=== PATIENT | female | born 1955 ===

== ENCOUNTER 2016-10-06 17:31 | Emergency (ER) | payer MEDICAID ==
[2016-10-06 17:51] VITALS: BP 126/88; PULSE 66; RESP 18; TEMP 97.1; O2SAT 99
[2016-10-06] MEDS ORDERED: Sodium Chloride 0.9% 1,000 ML IV STA (18:03)
--- NOTE | 2016-10-06 18:06 | ED PDOC ---
HPI: Abdomen Time Seen by Provider: 10/06/16 18:04 Chief Complaint (Nursing): Abdominal Pain Chief Complaint (Provider): abdominal pain History Per: Patient (60 y/o female h/o IDDM here with bruising and pain noted lower abdomen during shower. Denies any vomiting/dairrhea. No fevers/chills. No fall noted. Denies use of insulin in this region.) Past Medical History Reviewed: Historical Data, Nursing Documentation, Vital Signs Vital Signs: Last Vital Signs Temp 97.1 F L 10/06/16 17:47 Pulse 66 10/06/16 17:47 Resp 18 10/06/16 17:47 BP 126/88 10/06/16 17:47 Pulse Ox 99 10/06/16 18:06 - Medical History PMH: Arthritis, CAD, Diabetes, HTN, Hypercholesterolemia Denies: Fractures, HIV, Chronic Kidney Disease - Surgical History Surgical History: CABG - Family History Family History: States: Hypertension - Home Medications Home Medications: Ambulatory Orders Medication Instructions Recorded Atorvastatin [Lipitor] 80 mg PO DAILY 01/13/16 Citalopram Hydrobromide 40 mg PO DAILY 01/13/16 [Citalopram HBr] Clopidogrel [Plavix] 75 mg PO DAILY 01/13/16 Fenofibrate,Micronized [Lofibra] 134 mg PO DAILY 01/13/16 Ibuprofen [Motrin Tab] 600 mg PO Q8H PRN 01/13/16 Losartan/Hydrochlorothiazide 1 tab PO DAILY 01/13/16 [Hyzaar 100-25 Tablet] Nitroglycerin [Nitrostat] 0.4 mg SL Q5MIN PRN 01/13/16 Omeprazole 20 mg PO DAILY 01/13/16 Sitagliptin Phos/Metformin HCl 1 tab PO BID 01/13/16 [Janumet 50-500 mg Tablet] Ranolazine [Ranexa] 500 mg PO Q12H 04/18/16 Zolpidem [Ambien] 10 mg PO HS 04/18/16 Isosorbide Mononitrate [Imdur] 60 mg PO DAILY 06/05/16 amLODIPine [Norvasc] 5 mg PO DAILY 06/05/16 Insulin Detemir [Levemir] 10 units SC HS #1 vial 06/06/16 - Allergies Allergies/Adverse Reactions: Allergies Allergy/AdvReac Type Severity Reaction Status Date / Time No Known Allergies Allergy Verified 05/16/16 15:49 Review of Systems ROS Statement: Except As Marked, All Systems Reviewed And Found Negative Physical Exam - Reviewed Nursing Documentation Reviewed: Yes Vital Signs Reviewed: Yes - Physical Exam Appears: Positive for: Well, Non-toxic, No Acute Distress Head Exam: Positive for: ATRAUMATIC, NORMAL INSPECTION, NORMOCEPHALIC Skin: Positive for: Normal Color, Warm, DRY Eye Exam: Positive for: EOMI, Normal appearance, PERRL ENT: Positive for: Normal ENT Inspection Neck: Positive for: Normal, Painless ROM Cardiovascular/Chest: Positive for: Regular Rate, Rhythm Respiratory: Positive for: CNT, Normal Breath Sounds Gastrointestinal/Abdominal: Positive for: Normal Exam, Bowel Sounds, Soft Back: Positive for: Normal Inspection Extremity: Positive for: Normal ROM Neurologic/Psych: Positive for: Alert, Oriented - Laboratory Results Result Diagrams: 10/06/16 18:31 10/06/16 18:31 - ECG O2 Sat by Pulse Oximetry: 99 Disposition - Clinical Impression Clinical Impression: Abdominal pain - Patient ED Disposition Is Patient to be Admitted: No - Disposition Disposition: Transfer of Care Disposition Time: 20:00 Condition: FAIR Patient Signed Over To: Zakia Garduno Handoff Comments: PENDING CT ABD/PELVIS
[2016-10-06 18:46] LABS: BASO # 0.1 K/uL (0.0-0.2); BASO % 0.9 % (0.0-2.0); EOS # 0.3 K/uL (0.0-0.7); EOS % 3.5 % (0.0-4.0); LYMPH # 3.1 K/uL (1.0-4.3); LYMPH % 36.3 % (20.0-40.0); MEAN CELL VOLUME 82.9 fl (81.0-99.0); MEAN CORPUSCULAR HEMOGLOBIN 27.1 pg (27.0-31.0); MEAN CORPUSCULAR HGB CONC 32.6 g/dL (33.0-37.0); MEAN PLATELET VOLUME 8.2 fl (7.2-11.7); MONO # 0.6 K/uL (0.0-0.8); MONO % 7.4 % (0.0-10.0); NEUT # 4.5 K/uL (1.8-7.0); NEUT % 51.9 % (50.0-75.0); RBC 4.44 Mil/uL (3.80-5.20); RED CELL DISTRIBUTION WIDTH 15.7 % (11.5-14.5); WHITE BLOOD COUNT 8.6 K/uL (4.8-10.8)
[2016-10-06 18:54] LABS: ALB/GLOB RATIO 1.4 (1.0-2.1); ALBUMIN 4.3 g/dL (3.5-5.0); ALT/SGPT 43 U/L (9-52); AST/SGOT 33 U/L (14-36); BLOOD UREA NITROGEN 19 mg/dl (7-17); CALCIUM 9.5 mg/dL (8.4-10.2); GFR AFRICAN-AMERICAN > 60; GFR NON-AFRICAN AMERICAN > 60; LIPASE 289 U/L (23-300)
[2016-10-06 18:59] LABS: PARTIAL THROMBOPLASTIN TIME 30.5 Seconds (25.6-37.1); PROTHROMBIN TIME 11.3 Seconds (9.8-13.1)
[2016-10-06] MEDS ORDERED: Iohexol 300 100 ML IJ ONE (19:15)
[2016-10-06] MEDS ORDERED: Sodium Chloride 0.9% 50 ML IV ONE (19:15)
--- NOTE | 2016-10-06 20:14 | CT ---
EXAM: CT Abdomen and Pelvis With Intravenous Contrast CLINICAL HISTORY: 60 years old, female; Pain; Abdominal pain; Periumbilical; Additional info: Ecchymosis and pain below umbilicus. R/O hematoma TECHNIQUE: Axial computed tomography images of the abdomen and pelvis with intravenous contrast. This CT exam was performed using one or more of the following dose reduction techniques: automated exposure control, adjustment of the mA and/or kV according to patient size, and/or use of iterative reconstruction technique. Coronal and sagittal reformatted images were created and reviewed. CONTRAST: 90 mL of [id number] administered intravenously. EXAM DATE/TIME: 10/06/2016 6:03 PM COMPARISON: Prior CT abdomen and pelvis of 08/15/2011 FINDINGS: LIMITATIONS: Streak artifact from the patient's arms. LOWER THORAX: No infiltrate seen in the lung bases. ABDOMEN: LIVER: Fatty infiltration of the liver. No focal liver lesions seen. GALLBLADDER AND BILE DUCTS: No CT evidence of acute cholecystitis. No evidence of significant biliary ductal dilatation. PANCREAS: No CT evidence of acute pancreatitis. SPLEEN: No acute abnormality of the spleen identified. ADRENALS: No acute abnormality of the adrenal glands identified. KIDNEYS AND URETERS: Mild bilateral renal scarring. No acute abnormality of the kidneys identified. STOMACH AND BOWEL: No acute abnormality of the stomach, small bowel or colon identified. No evidence of bowel obstruction. APPENDIX: Appendix is seen, and is within normal limits in appearance. PELVIS: BLADDER: No acute abnormality of the bladder identified. REPRODUCTIVE:No acute abnormality of the reproductive organs is seen. No acute abnormality of the uterus identified. No evidence of large adnexal masses. ABDOMEN and PELVIS: INTRAPERITONEAL SPACE: No evidence of free intraperitoneal air or fluid. BONES/JOINTS: Mild scoliosis and marked, multilevel degenerative changes of the spine. SOFT TISSUES: Mild subcutaneous fat stranding in the upper, anterior pelvic wall soft tissues, inferior to the umbilicus, which could represent mild subcutaneous contusion or cellulitis. There is no evidence of a large soft tissue hematoma or fluid collection. Stable appearance of multiple small collateral vessels in the anterior pelvic wall soft tissues, in the suprapubic region, suggestive of some type of chronic venous obstruction. No evidence of abdominal wall hernia containing bowel. VASCULATURE: No evidence of abdominal aortic aneurysm or dissection. LYMPH NODES: No evidence of diffuse lymphadenopathy. IMPRESSION: - No evidence of significant acute process. - Findings in the infraumbilical soft tissues which could be due to mild subcutaneous contusion or cellulitis. No evidence of soft tissue hematoma. - Otherwise, no evidence of significant acute process. - See above for remaining findings.
--- NOTE | 2016-10-06 21:12 | ED PDOC ---
- Laboratory Results Result Diagrams: 10/06/16 18:31 10/06/16 18:31 - ECG O2 Sat by Pulse Oximetry: 99 Medical Decision Making Medical Decision Making: Case endorsed to staff writer from JUAN Corbett at 20:00 pending diagnostic review and re-eval HPI: Abdomen Time Seen by Provider: 10/06/16 18:04 Chief Complaint (Nursing): Abdominal Pain Chief Complaint (Provider): abdominal pain History Per: Patient (60 y/o female h/o IDDM here with bruising and pain noted lower abdomen during shower. Denies any vomiting/dairrhea. No fevers/chills. No fall noted. Denies use of insulin in this region.) CBC and COMP resulted WNL CT IMPRESSION: - No evidence of significant acute process. - Findings in the infraumbilical soft tissues which could be due to mild subcutaneous contusion or cellulitis. No evidence of soft tissue hematoma. - Otherwise, no evidence of significant acute process. - See above for remaining findings Upon my eval, Pt without any complaints. reports feeling better. Abdomen soft non tender and non distended Disposition - Clinical Impression Clinical Impression: Abdominal pain - POA Present On Arrival: None - Disposition Disposition: Routine/Home Disposition Time: 21:18 Condition: FAIR
== END 2016-10-06 21:34 | disposition home or self-care (01) ==
LOC: H.ER 17:31
DX: R10.9 Unspecified abdominal pain (principal); E11.9 Type 2 diabetes mellitus without complications; I10 Essential (primary) hypertension

== ENCOUNTER 2016-11-09 14:10 | Emergency (ER) | payer MEDICAID ==
[2016-11-09] MEDS ORDERED: Sodium Chloride 0.9% 1,000 ML IV STA (14:28)
--- NOTE | 2016-11-09 14:38 | ED PDOC ---
HPI: Abdomen Time Seen by Provider: 11/09/16 14:23 Chief Complaint (Nursing): Abdominal Pain Chief Complaint (Provider): Abodminal Pain History Per: Patient History/Exam Limitations: no limitations Onset/Duration Of Symptoms: Hrs (prior to arrival ) Additional Complaint(s): Anne Matta is a 61 year old female with a past medical history of hypertension and diabetes and a past surgical history of open heart surgery in 2004 presenting to the ED for an evaluation of a sudden onset of right sided abdominal pain radiating to her back associated with nausea beginning at 7 AM this morning. The patient reports no prior history of similar pain. She denies fever and diarrhea. PMD: Nba Garzon MD Past Medical History Reviewed: Historical Data, Nursing Documentation, Vital Signs Vital Signs: Last Vital Signs Temp 97.9 F 11/09/16 17:12 Pulse 57 L 11/09/16 17:12 Resp 16 11/09/16 17:12 BP 138/86 11/09/16 17:12 Pulse Ox 99 11/12/16 10:28 - Medical History PMH: Arthritis, CAD, Diabetes, HTN, Hypercholesterolemia Denies: Fractures, HIV, Chronic Kidney Disease - Surgical History Surgical History: CABG - Family History Family History: States: Hypertension - Living Arrangements Living Arrangements: With Family - Home Medications Home Medications: Ambulatory Orders Medication Instructions Recorded Atorvastatin [Lipitor] 80 mg PO DAILY 01/13/16 Citalopram Hydrobromide 40 mg PO DAILY 01/13/16 [Citalopram HBr] Clopidogrel [Plavix] 75 mg PO DAILY 01/13/16 Fenofibrate,Micronized [Lofibra] 134 mg PO DAILY 01/13/16 Ibuprofen [Motrin Tab] 600 mg PO Q8H PRN 01/13/16 Losartan/Hydrochlorothiazide 1 tab PO DAILY 01/13/16 [Hyzaar 100-25 Tablet] Nitroglycerin [Nitrostat] 0.4 mg SL Q5MIN PRN 01/13/16 Omeprazole 20 mg PO DAILY 01/13/16 Sitagliptin Phos/Metformin HCl 1 tab PO BID 01/13/16 [Janumet 50-500 mg Tablet] Ranolazine [Ranexa] 500 mg PO Q12H 04/18/16 Zolpidem [Ambien] 10 mg PO HS 04/18/16 Isosorbide Mononitrate [Imdur] 60 mg PO DAILY 06/05/16 amLODIPine [Norvasc] 5 mg PO DAILY 06/05/16 Insulin Detemir [Levemir] 10 units SC HS #1 vial 06/06/16 Polyethylene Glycol 3350 [Miralax] 1 tbs PO DAILY PRN #1 bottle 11/09/16 - Allergies Allergies/Adverse Reactions: Allergies Allergy/AdvReac Type Severity Reaction Status Date / Time No Known Allergies Allergy Verified 05/16/16 15:49 Review of Systems ROS Statement: Except As Marked, All Systems Reviewed And Found Negative Constitutional: Negative for: Fever Gastrointestinal: Positive for: Nausea, Abdominal Pain. Negative for: Diarrhea Physical Exam - Reviewed Nursing Documentation Reviewed: Yes Vital Signs Reviewed: Yes - Physical Exam Appears: Positive for: Well, Non-toxic, No Acute Distress Head Exam: Positive for: ATRAUMATIC, NORMAL INSPECTION, NORMOCEPHALIC Skin: Positive for: Normal Color, Warm, DRY Eye Exam: Positive for: EOMI, Normal appearance, PERRL ENT: Positive for: Normal ENT Inspection Neck: Positive for: Normal, Painless ROM Cardiovascular/Chest: Positive for: Regular Rate, Rhythm Respiratory: Positive for: CNT, Normal Breath Sounds Gastrointestinal/Abdominal: Positive for: Normal Exam, Bowel Sounds, Soft, Tenderness (right sided lower abdomen tenderness ) Back: Positive for: Normal Inspection, R CVA Tenderness Extremity: Positive for: Normal ROM Neurologic/Psych: Positive for: Alert, Oriented - Laboratory Results Result Diagrams: 11/09/16 14:50 11/09/16 14:50 - ECG O2 Sat by Pulse Oximetry: 99 (RA) Pulse Ox Interpretation: Normal Medical Decision Making Medical Decision Makin:23 Impression: Abdominal pain Plan: * Initiate pain medicine * Obtain blood work * US Abdomen to rule out renal colic vs. cholelithiasis vs. appendicitis * Re-evaluation Scribe Attestation: Documented by Earlene Casanova, acting as a scribe for Wale Andre DO. Provider Scribe Attestation: All medical record entries made by the Scribe were at my direction and personally dictated by me. I have reviewed the chart and agree that the record accurately reflects my personal performance of the history, physical exam, medical decision making, and the department course for this patient. I have also personally directed, reviewed, and agree with the discharge instructions and disposition. Disposition - Clinical Impression Clinical Impression: Abdominal pain in female, Constipation Counseled Patient/Family Regarding: Need For Followup - Disposition Referrals: Nba Garzon MD [Family Provider] - Disposition: Transfer of Care Disposition Time: 15:00 Condition: STABLE Prescriptions: Polyethylene Glycol 3350 [Miralax] 1 tbs PO DAILY PRN #1 bottle PRN Reason: Constipation Instructions: Constipation (ED), Abdominal Pain (ED) Forms: [facility] (Chinese) Print Language: AMHARIC Patient Signed Over To: Nicole Browning Handoff Comments: pending US abd and blood work
[2016-11-09 15:00] LABS: BASO # 0.1 K/uL (0.0-0.2); BASO % 0.8 % (0.0-2.0); EOS # 0.4 K/uL (0.0-0.7); EOS % 4.6 % (0.0-4.0); HEMOGLOBIN 12.2 g/dL (12.0-16.0); LYMPH # 3.1 K/uL (1.0-4.3); LYMPH % 36.8 % (20.0-40.0); MEAN CELL VOLUME 82.6 fl (81.0-99.0); MEAN CORPUSCULAR HEMOGLOBIN 26.5 pg (27.0-31.0); MEAN CORPUSCULAR HGB CONC 32.1 g/dL (33.0-37.0); MEAN PLATELET VOLUME 7.8 fl (7.2-11.7); MONO # 0.9 K/uL (0.0-0.8); MONO % 10.2 % (0.0-10.0); NEUT % 47.6 % (50.0-75.0); NRBC % 0.1 % (0.0-0.0); RBC 4.62 Mil/uL (3.80-5.20); RED CELL DISTRIBUTION WIDTH 15.6 % (11.5-14.5); WHITE BLOOD COUNT 8.4 K/uL (4.8-10.8)
[2016-11-09 15:08] LABS: ALB/GLOB RATIO 1.3 (1.0-2.1); ALBUMIN 4.3 g/dL (3.5-5.0); ALT/SGPT 39 U/L (9-52); AST/SGOT 42 U/L (14-36); BLOOD UREA NITROGEN 17 mg/dl (7-17); CALCIUM 9.3 mg/dL (8.4-10.2); GFR AFRICAN-AMERICAN > 60; GFR NON-AFRICAN AMERICAN > 60; LIPASE 192 U/L (23-300)
[2016-11-09 15:49] LABS: SQUAMOUS EPITHIAL < 1 /hpf (0-5); URINE BILIRUBIN NEGATIVE (NEGATIVE); URINE BLOOD NEGATIVE (NEGATIVE); URINE CLARITY CLEAR (Clear); URINE COLOR YELLOW (YELLOW); URINE GLUCOSE (UA) NEG (Normal); URINE LEUKOCYTE ESTERASE NEG Leu/uL (Negative); URINE NITRATE NEGATIVE (NEGATIVE); URINE PROTEIN NEGATIVE (NEGATIVE); URINE UROBILINOGEN 0.2-1.0 mg/dL (0.2-1.0)
--- NOTE | 2016-11-09 16:38 | ED PDOC ---
- Laboratory Results Result Diagrams: 11/09/16 14:50 11/09/16 14:50 - ECG O2 Sat by Pulse Oximetry: 99 (RA) - CT Scan/US CT abd/pelvis Other Rad Studies (CT/US): Radiology Report Reviewed (No significant or acute findings to account for/ related to the clinical presentation. No significant interval change compared to the prior examination(s).) Disposition - Clinical Impression Clinical Impression: Abdominal pain in female, Constipation - POA Present On Arrival: None - Disposition Referrals: Nba Garzon MD [Family Provider] - Disposition: Routine/Home Disposition Time: 17:39 Condition: STABLE Prescriptions: Polyethylene Glycol 3350 [Miralax] 1 tbs PO DAILY PRN #1 bottle PRN Reason: Constipation Instructions: Constipation (ED), Abdominal Pain (ED) Forms: [facility] (Malagasy) Print Language: SOUTH KOREAN Addendum Addendum: 11/09/16 15:00 Pt signed out by Dr. Andre pending CT.
--- NOTE | 2016-11-09 17:02 | US ---
HISTORY: Right flank and abdominal pain. COMPARISON: 06/05/2016 abdominal ultrasound TECHNIQUE: Sonographic evaluation of the abdomen. FINDINGS: LIVER: Measures 15.6 cm. Patent portal vein. Portal venous flow: Hepatopetal. Unremarkeable echogenicity of the liver parenchyma. No mass. No intrahepatic bile duct dilatation. GALLBLADDER: Unremarkable. No gallstones. COMMON BILE DUCT: Measures 4.2 mm. No stones. No dilatation. PANCREAS: Unremarkable as visualized. No mass. No ductal dilatation. RIGHT KIDNEY: Measures 4 x 10.8cm. Normal echogenicity. No calculus, mass, or hydronephrosis. LEFT KIDNEY: Measures 6.7 x 10.9cm. Normal echogenicity. No calculus, mass, or hydronephrosis. SPLEEN: Normal in size and contour. No mass. AORTA: No aneurysmal dilatation. IVC: Unremarkable. OTHER FINDINGS: None. IMPRESSION: No significant or acute findings to account for/ related to the clinical presentation. No significant interval change compared to the prior examination(s).
--- NOTE | 2016-11-09 17:08 | CT ---
PROCEDURE: CT Abdomen and Pelvis without intravenous contrast HISTORY: Flank pain COMPARISON: 10/06/2016 CT abdomen and pelvis. November 09, 2016. Abdominal ultrasound reported separately TECHNIQUE: Unenhanced study. Neither oral nor intravenous contrast administered. Radiation dose: Total exam DLP = 1082.80 mGy-cm. This CT exam was performed using one or more of the following dose reduction techniques: Automated exposure control, adjustment of the mA and/or kV according to patient size, and/or use of iterative reconstruction technique. FINDINGS: LOWER THORAX: Incompletely visualize cardiomegaly. No pericardial abnormalities. No pulmonary findings of consequence. LIVER: Hepatic steatosis. No focal masses. No intrahepatic bile duct dilatation or perihepatic ascites. GALLBLADDER AND BILE DUCTS: Unremarkable. PANCREAS: Unremarkable. No gross lesion or ductal dilatation. SPLEEN: Unremarkable. ADRENALS: Unremarkable. No mass. KIDNEYS AND URETERS: Unremarkable. No hydronephrosis. No solid mass. VASCULATURE: Unremarkable. No aortic aneurysm. BOWEL: Constipation without fecal impaction or obstruction. APPENDIX: Unremarkable. Normal appendix. PERITONEUM: Unremarkable. No free fluid. No free air. LYMPH NODES: Unremarkable. No enlarged lymph nodes. BLADDER: Unremarkable. REPRODUCTIVE: Unremarkable. BONES: No acute fracture. Multilevel degenerative change stable compared to the prior CT scan. OTHER FINDINGS: None. IMPRESSION: No significant or acute findings to account for/ related to the clinical presentation. No significant interval change compared to the prior examination(s).
[2016-11-09 17:13] VITALS: BP 138/86; PULSE 57; RESP 16; TEMP 97.9
[2016-11-12 10:28] VITALS: O2SAT 99
== END 2016-11-09 17:49 | disposition home or self-care (01) ==
LOC: H.ER 14:10
DX: K59.00 Constipation, unspecified (principal); E11.9 Type 2 diabetes mellitus without complications; I10 Essential (primary) hypertension

== ENCOUNTER 2017-02-23 14:51 | Emergency (ER) | payer MEDICAID ==
[2017-02-23 15:08] VITALS: BP 148/75; PULSE 73; RESP 20; TEMP 99.6; O2SAT 98
[2017-02-23] MEDS ORDERED: Alum-Mag Hydrox-Simethicone Susp (30 mL) PO STA (15:28)
--- NOTE | 2017-02-23 15:39 | ED PDOC ---
HPI: Abdomen Time Seen by Provider: 02/23/17 15:13 Chief Complaint (Nursing): Abdominal Pain Chief Complaint (Provider): Epigastric pain History Per: Patient History/Exam Limitations: no limitations Onset/Duration Of Symptoms: Days (2) Additional Complaint(s): Patient is a 61 y/o female with a past medical history of CAD and CABG presenting to the emergency department for epigastric pain ongoing for two days with associated nausea. Describes the pain as a burning sensation that is non- radiating and is worse when eating. Notes taking Bentyl and pantoprazole without any significant relief. Denies vomiting, black or bloody stool, urinary symptoms, fever, chills, diarrhea, constipation, or other complaints. Patient was seen in the ED for the same pain in the past. Reports being evaluated by the chop saw operator two years ago and had an endoscopic procedure performed on her. Denies any follow up since then. PCP: Dr. Nba Garzon ([facility]). Past Medical History Reviewed: Historical Data, Nursing Documentation, Vital Signs Vital Signs: Last Vital Signs Temp 99.6 F 02/23/17 15:05 Pulse 73 02/23/17 15:05 Resp 20 02/23/17 15:05 BP 148/75 02/23/17 15:05 Pulse Ox 98 02/23/17 15:46 - Medical History PMH: Arthritis, CAD, Diabetes, HTN, Hypercholesterolemia Denies: Fractures, HIV, Chronic Kidney Disease - Surgical History Surgical History: CABG - Family History Family History: States: Diabetes, Hypertension - Social History Current smoker - smoking cessation education provided: No Ex-Smoker (has not smoked in the last 12 months): No Alcohol: None Drugs: Denies - Home Medications Home Medications: Ambulatory Orders Medication Instructions Recorded Atorvastatin [Lipitor] 80 mg PO DAILY 01/13/16 Citalopram Hydrobromide 40 mg PO DAILY 01/13/16 [Citalopram HBr] Clopidogrel [Plavix] 75 mg PO DAILY 01/13/16 Fenofibrate,Micronized [Lofibra] 134 mg PO DAILY 01/13/16 Ibuprofen [Motrin Tab] 600 mg PO Q8H PRN 01/13/16 Losartan/Hydrochlorothiazide 1 tab PO DAILY 01/13/16 [Hyzaar 100-25 Tablet] Nitroglycerin [Nitrostat] 0.4 mg SL Q5MIN PRN 01/13/16 Omeprazole 20 mg PO DAILY 01/13/16 Sitagliptin Phos/Metformin HCl 1 tab PO BID 01/13/16 [Janumet 50-500 mg Tablet] Ranolazine [Ranexa] 500 mg PO Q12H 04/18/16 Zolpidem [Ambien] 10 mg PO HS 04/18/16 Isosorbide Mononitrate [Imdur] 60 mg PO DAILY 06/05/16 amLODIPine [Norvasc] 5 mg PO DAILY 06/05/16 Insulin Detemir [Levemir] 10 units SC HS #1 vial 06/06/16 Polyethylene Glycol 3350 [Miralax] 1 tbs PO DAILY PRN #1 bottle 11/09/16 Sucralfate [Carafate] 1 gm PO QID PRN #20 dose 02/23/17 - Allergies Allergies/Adverse Reactions: Allergies Allergy/AdvReac Type Severity Reaction Status Date / Time No Known Allergies Allergy Verified 05/16/16 15:49 Review of Systems ROS Statement: Except As Marked, All Systems Reviewed And Found Negative Constitutional: Negative for: Fever, Chills Gastrointestinal: Positive for: Nausea, Abdominal Pain (epigastric). Negative for: Vomiting, Diarrhea, Constipation, Melena, Hematochezia Genitourinary Female: Negative for: Dysuria, Frequency, Hematuria Physical Exam - Reviewed Nursing Documentation Reviewed: Yes Vital Signs Reviewed: Yes - Laboratory Results Result Diagrams: 02/23/17 15:49 02/23/17 15:49 - ECG ECG: Positive for: Interpreted By Ok ECG Rhythm: Positive for: Normal QRS, Sinus Rhythm, Nonspecific Changes O2 Sat by Pulse Oximetry: 98 (RA) Pulse Ox Interpretation: Normal Medical Decision Making Medical Decision Makin:28 Initial Impression: Recurrent abdominal pain Initial Plan: EKG Labs: CMP, Lipase, CBC ED Urine Dipstick Aluminum Hydroxide 30 mL PO Pepcid 40 mg PO Lidocaine 10 mL PO Zofran 4 mg IVP Sucralfate 1 gm PO Reevaluation Reviewed previous charts. Patient had a CT scan A/P twice this year and two abdominal ultrasounds which were unremarkable. No explanation of symptoms were provided. No clinically significant lab abnormalities. Scribe Attestation: Documented by Sally Gomez acting as a scribe for Zakia Parra MD. Provider Scribe Attestation: All medical record entries made by the Scribe were at my direction and personally dictated by me. I have reviewed the chart and agree that the record accurately reflects my personal performance of the history, physical exam, medical decision making, and the department course for this patient. I have also personally directed, reviewed, and agree with the discharge instructions and disposition. Disposition - Clinical Impression Clinical Impression: Abdominal pain Counseled Patient/Family Regarding: Studies Performed, Diagnosis, Need For Followup, Rx Given - Disposition Referrals: Wale Jackson MD, PhD [Staff Provider] - 02/26/17 ([facility] A LA OFICINA DE GASTROENTEROLOGO POR LA MANANA A HACER JUAN C MAURILIO EN 2-3 STANLEY POR MAS EVALUACIONES ) Disposition: Routine/Home Disposition Time: 17:22 Condition: GOOD Prescriptions: Sucralfate [Carafate] 1 gm PO QID PRN #20 dose PRN Reason: Abdominal pain Instructions: Abdominal Pain (ED) Print Language: TRISTANIAN
[2017-02-23] MEDS ORDERED: Sucralfate 1 gm/10 ml Oral Susp UD ONE (15:52)
[2017-02-23] MEDS ORDERED: Alum-Mag Hydrox-Simethicone Susp (30 mL) ONE (15:53)
[2017-02-23 15:54] LABS: BASO # 0.1 K/uL (0.0-0.2); BASO % 0.7 % (0.0-2.0); EOS # 0.2 K/uL (0.0-0.7); EOS % 2.7 % (0.0-4.0); HEMATOCRIT 36.5 % (34.0-47.0); LYMPH # 2.1 K/uL (1.0-4.3); LYMPH % 24.2 % (20.0-40.0); MEAN CORPUSCULAR HEMOGLOBIN 26.9 pg (27.0-31.0); MEAN CORPUSCULAR HGB CONC 33.2 g/dL (33.0-37.0); MEAN PLATELET VOLUME 7.8 fl (7.2-11.7); MONO # 0.8 K/uL (0.0-0.8); MONO % 9.2 % (0.0-10.0); NEUT # 5.4 K/uL (1.8-7.0); NEUT % 63.2 % (50.0-75.0); NRBC % 0.1 % (0.0-0.0); RED CELL DISTRIBUTION WIDTH 15.6 % (11.5-14.5); WHITE BLOOD COUNT 8.5 K/uL (4.8-10.8)
[2017-02-23 17:01] LABS: ALB/GLOB RATIO 1.2 (1.0-2.1); ALKALINE PHOSPHATASE 51 U/L (38-126); ALT/SGPT 37 U/L (9-52); AST/SGOT 26 U/L (14-36); BILIRUBIN,TOTAL 0.3 mg/dl (0.2-1.3); BLOOD UREA NITROGEN 13 mg/dl (7-17); CALCIUM 8.9 mg/dL (8.4-10.2); CARBON DIOXIDE 30 mmol/L (22-30); CHLORIDE 105 mmol/L (98-107); GFR AFRICAN-AMERICAN > 60; GLUCOSE,RANDOM 150 mg/dL (65-105); LIPASE 174 U/L (23-300); POTASSIUM 4.4 MMOL/L (3.6-5.0); SODIUM 143 mmol/l (132-148); TOTAL PROTEIN 7.6 G/DL (6.3-8.2)
--- NOTE | 2017-02-24 12:49 | CARD ---
APPROVED REPORT EKG Measurement Heart [id number] <Conclusion> Normal sinus rhythm Nonspecific T wave abnormality Abnormal ECG
== END 2017-02-23 17:45 | disposition home or self-care (01) ==
LOC: H.ER 14:51
DX: R10.13 Epigastric pain (principal); E11.9 Type 2 diabetes mellitus without complications; E78.00 Pure hypercholesterolemia, unspecified; I10 Essential (primary) hypertension; I25.10 Atherosclerotic heart disease of native coronary artery without angina pectoris; Z79.4 Long term (current) use of insulin; Z95.1 Presence of aortocoronary bypass graft
CPT/HCPCS: 80053; 82948; 83690; 85025; 93005; 96374; 99283; J2405

== ENCOUNTER 2017-08-15 10:30 | Observation (INO) | payer MEDICAID ==
[2017-08-15 10:41] VITALS: BMI 33.6
--- NOTE | 2017-08-15 11:12 | ED PDOC ---
Hyperglycemia/Hypoglycemia Time Seen by Provider: 08/15/17 10:43 Chief Complaint (Nursing): High Blood Sugar Chief Complaint (Provider): High Blood Sugar History Per: Patient History/Exam Limitations: no limitations Onset/Duration Of Symptoms: Other (prior to arrival) Current Symptoms Are (Timing): Still Present : The patient does not have any of the infectious symptoms listed except for those marked. Additional Complaint(s): 61 y/o female with a pmhx of HTN, diabetes, hypercholesterolemia, and depression , who presents to the ED for evaluation of high blood sugar prior to arrival. Patient states she woke up feeling dizzy. She states she afterwards checked her blood sugar and it was over 520. She reports her dizziness is constant whether sitting or standing, and some blurry vision. Patient is also reporting weeks of urinary incontinence, but no stool incontinence. She also confirms intermittent chest pain onset this morning, nausea, and generalized weakness. Denies headache , shortness of breath, cough, vomiting, diarrhea, numbness, and tingling. PMD: Dr. Garzon NIHSS Stroke Scale - Date/Time Evaluation Performed Date Performed: 08/15/17 Time Performed: 10:45 When Was NIHSS Performed: Baseline - How Severe is the Stroke Level of Consciousness: 0=Alert LOC to Questions: 0=Both comments correct LOC to commands: 0=Obeys both correctly Best Gaze: 0=Normal Visual: 0=No visual loss Facial: 0=Normal Motor Arm - Left: 0=No drift Motor Arm - Right: 0=No drift Motor Leg - Left: 0=No drift Motor Leg - Right: 0=No drift Limb Ataxia: 0=Absent Sensory: 0=Normal Best Language: 0=No aphasia Dysarthia: 0=Normal articulation Extinction & Inattention (Neglect): 0=Normal, no object Score: 0 rTPA Inclusion/Exclusion - Refusal of Treatment Patient Refused Treatment: No - Inclusion Criteria for Altepase Patient is 18 years or Older: Yes The Clinical Diagnosis of Ischemic Stroke That is Causing a Potentially Disabling Neurological Deficit: No Time of Onset is Well Established to be Less Than 270 Minute Before Treatment Would Begin: No Risk/Benefit Discussed With Patient/Family Member Present: No Past Medical History Reviewed: Nursing Documentation, Vital Signs Vital Signs: Last Vital Signs Temp 98.1 F 08/15/17 10:41 Pulse 64 08/15/17 10:41 Resp 20 08/15/17 10:41 BP 168/88 H 08/15/17 10:41 Pulse Ox 97 08/15/17 10:41 - Medical History PMH: Arthritis, CAD, Diabetes, HTN, Hypercholesterolemia Denies: Fractures, HIV, Chronic Kidney Disease - Surgical History Surgical History: CABG - Family History Family History: States: Diabetes, Hypertension - Home Medications Home Medications: Ambulatory Orders Medication Instructions Recorded Atorvastatin [Lipitor] 80 mg PO DAILY 01/13/16 Citalopram Hydrobromide 40 mg PO DAILY 01/13/16 [Citalopram HBr] Clopidogrel [Plavix] 75 mg PO DAILY 01/13/16 Fenofibrate,Micronized [Lofibra] 134 mg PO DAILY 01/13/16 Ibuprofen [Motrin Tab] 600 mg PO Q8H PRN 01/13/16 Losartan/Hydrochlorothiazide 1 tab PO DAILY 01/13/16 [Hyzaar 100-25 Tablet] Nitroglycerin [Nitrostat] 0.4 mg SL Q5MIN PRN 01/13/16 Omeprazole 20 mg PO DAILY 01/13/16 Sitagliptin Phos/Metformin HCl 1 tab PO BID 01/13/16 [Janumet 50-500 mg Tablet] Ranolazine [Ranexa] 500 mg PO Q12H 04/18/16 Zolpidem [Ambien] 10 mg PO HS 04/18/16 Isosorbide Mononitrate [Imdur] 60 mg PO DAILY 06/05/16 amLODIPine [Norvasc] 5 mg PO DAILY 06/05/16 Insulin Detemir [Levemir] 10 units SC HS #1 vial 06/06/16 Polyethylene Glycol 3350 [Miralax] 1 tbs PO DAILY PRN #1 bottle 11/09/16 Sucralfate [Carafate] 1 gm PO QID PRN #20 dose 02/23/17 - Allergies Allergies/Adverse Reactions: Allergies Allergy/AdvReac Type Severity Reaction Status Date / Time No Known Allergies Allergy Verified 08/15/17 10:59 Review of Systems ROS Statement: Except As Marked, All Systems Reviewed And Found Negative Constitutional: Positive for: Weakness Eyes: Positive for: Other (blurry vision) Cardiovascular: Positive for: Chest Pain Respiratory: Negative for: Cough, Shortness of Breath Gastrointestinal: Positive for: Nausea. Negative for: Vomiting, Abdominal Pain , Diarrhea, Constipation Genitourinary Female: Positive for: Incontinence Neurological: Positive for: Dizziness. Negative for: Numbness, Headache Physical Exam - Reviewed Nursing Documentation Reviewed: Yes Vital Signs Reviewed: Yes - Physical Exam Appears: Positive for: Non-toxic, No Acute Distress Head Exam: Positive for: ATRAUMATIC, NORMAL INSPECTION, NORMOCEPHALIC Skin: Positive for: Normal Color, Warm, Dry. Negative for: Rash Eye Exam: Positive for: EOMI, Normal appearance, PERRL ENT: Positive for: Normal ENT Inspection. Negative for: Nasal Congestion, Pharyngeal Erythema Neck: Positive for: Normal, Painless ROM, Supple Cardiovascular/Chest: Positive for: Regular Rate, Rhythm. Negative for: Murmur Respiratory: Positive for: Normal Breath Sounds. Negative for: Respiratory Distress Gastrointestinal/Abdominal: Positive for: Normal Exam, Soft. Negative for: Tenderness Back: Positive for: Normal Inspection. Negative for: L CVA Tenderness, R CVA Tenderness, Vertebral Tenderness Extremity: Positive for: Normal ROM. Negative for: Tenderness, Pedal Edema, Deformity Neurologic/Psych: Positive for: Alert, bleach range operator II-XII, Oriented. Negative for: Motor/Sensory Deficits, Aphasia, Facial Droop - Laboratory Results Result Diagrams: 08/15/17 11:37 08/15/17 11:37 Interpretation Of Abn Labs: glucose mild elevated - ECG ECG: Positive for: Interpreted By Me, Viewed By Me ECG Rhythm: Positive for: Normal QRS, Normal ST Segment, Sinus Rhythm O2 Sat by Pulse Oximetry: 97 (RA) Pulse Ox Interpretation: Normal - Radiology X-Ray: Read By Radiologist X-Ray Interpretation: No Acute Disease - CT Scan/US ct Other Rad Studies (CT/US): Read By Radiologist Other Rad Interpretation: no acute - Progress ED Course And Treament: 1445: Pt. stable. AAOx3. Pain free. Will need admit for further evaluation. Chest pain free. 1351: Spoke with Sumit. Will admit obs tele. Pt. took plavix today, so will hold aspirin. Medical Decision Making Medical Decision Makin:04 Initial Impression: Hyperglycemia Plan: --Type and screen --CT head w/o contrast --EKG --CMP --Hemoglobin A1C --Lipid panel --Troponin I --CBC w/ differential --CXR --Glucose, POC --Antivert 25mg PO --1LNS --monitoring manager --Swallow screen --Vitals Q15min --Reevaluation Scribe Attestation: Documented by Thomas Cee, acting as a scribe for Drake Craig MD. Provider Scribe Attestation: All medical record entries made by the Scribe were at my direction and personally dictated by me. I have reviewed the chart and agree that the record accurately reflects my personal performance of the history, physical exam, medical decision making, and the department course for this patient. I have also personally directed, reviewed, and agree with the discharge instructions and disposition. Disposition - Clinical Impression Clinical Impression: Chest pain, Weakness, Dizziness, Hyperglycemia - Patient ED Disposition Is Patient to be Admitted: Yes Counseled Patient/Family Regarding: Studies Performed, Diagnosis - Disposition Disposition Time: 13:54 Condition: FAIR - Pt Status Changed To: Hospital Disposition Of: Observation - POA Present On Arrival: Poor Glycemic Control
[2017-08-15] MEDS: Sodium Chloride 0.9% 1,000 ML IV SCH ×2 (11:28→20:38)
--- NOTE | 2017-08-15 11:39 | CT ---
PROCEDURE: CT HEAD WITHOUT CONTRAST. HISTORY: headache COMPARISON: CT head 01/13/2016 TECHNIQUE: Axial computed tomography images were obtained through the head/brain without intravenous contrast. Radiation dose: Total exam DLP = 808 mGy-cm. This CT exam was performed using one or more of the following dose reduction techniques: Automated exposure control, adjustment of the mA and/or kV according to patient size, and/or use of iterative reconstruction technique. FINDINGS: HEMORRHAGE: No intracranial hemorrhage. BRAIN: No mass effect or edema. The previously referenced mild cerebral atrophy or an mild inferred chronic microvascular ischemic/periventricular changes are similar in appearance. VENTRICLES: No interval pathology here ; age related ventricular appearance CALVARIUM: Unremarkable. PARANASAL SINUSES: Unremarkable as visualized. No significant inflammatory changes. MASTOID AIR CELLS: Unremarkable as visualized. No inflammatory changes. OTHER FINDINGS: None. IMPRESSION: No interval pathology noted. The previously referenced mild chronic atrophy/mild periventricular chronic ischemic changes are similar appearing
--- NOTE | 2017-08-15 11:40 | RAD ---
HISTORY: Code Stroke COMPARISON: 06/05/2016 FINDINGS: LUNGS: No active pulmonary disease. PLEURA: No significant pleural effusion identified, no pneumothorax apparent. CARDIOVASCULAR: Minimal cardiomegaly-similar OSSEOUS STRUCTURES: Midline sternotomy and coronary artery bypass surgery suggested -surgical changes similar. Moderate thoracic spondylosis. Right shoulder arthrosis VISUALIZED UPPER ABDOMEN: Normal. OTHER FINDINGS: None. IMPRESSION: No interval pathology appreciated
[2017-08-15 11:47] LABS: BASO % 0.6 % (0.0-2.0); EOS # 0.2 K/uL (0.0-0.7); EOS % 2.9 % (0.0-4.0); HEMOGLOBIN 13.1 g/dL (12.0-16.0); LYMPH % 27.9 % (20.0-40.0); MEAN CELL VOLUME 80.8 fl (81.0-99.0); MEAN CORPUSCULAR HEMOGLOBIN 27.1 pg (27.0-31.0); MEAN CORPUSCULAR HGB CONC 33.6 g/dL (33.0-37.0); MEAN PLATELET VOLUME 8.5 fl (7.2-11.7); MONO # 0.4 K/uL (0.0-0.8); MONO % 5.8 % (0.0-10.0); NEUT # 4.5 K/uL (1.8-7.0); NEUT % 62.8 % (50.0-75.0); RBC 4.82 Mil/uL (3.80-5.20); RED CELL DISTRIBUTION WIDTH 15.5 % (11.5-14.5); WHITE BLOOD COUNT 7.2 K/uL (4.8-10.8)
[2017-08-15 11:54] LABS: CALCIUM 9.4 mg/dL (8.4-10.2); GFR AFRICAN-AMERICAN > 60; GFR NON-AFRICAN AMERICAN > 60; HDL CHOLESTEROL 57 MG/DL (30-70)
[2017-08-15 12:05] LABS: LDL CHOLESTEROL 92 mg/dL (0-129)
[2017-08-15 12:07] LABS: ALB/GLOB RATIO 1.1 (1.0-2.1); ALBUMIN 4.1 g/dL (3.5-5.0); ALT/SGPT 34 U/L (9-52); AST/SGOT 35 U/L (14-36); BLOOD UREA NITROGEN 13 mg/dl (7-17)
[2017-08-15 12:08] LABS: PARTIAL THROMBOPLASTIN TIME 32.5 Seconds (25.6-37.1); PROTHROMBIN TIME 10.9 Seconds (9.8-13.1)
--- NOTE | 2017-08-15 17:50 | CARD ---
APPROVED REPORT EKG Measurement Heart [id number] <Conclusion> Normal sinus rhythm Possible Left atrial enlargement Prolonged QT Abnormal ECG
[2017-08-15] MEDS ORDERED: Pneumococcal 23-Valent Vaccine IM ONE (18:16)
--- NOTE | 2017-08-15 18:20 | CP.PCM.CON ---
History of Present Illness - History of Present Illness History of Present Illness: I was asked to see patient by Dr Ramirez and Dr Garzon. Patient is a 61 year old female with PMH HTN, CAD s/p CABG, DM who presents with weakness and dsypnea. The patient states symptoms began a few days ago. She describes lighheadedness, and was found to have a FS >500. The patient denies current chest pain. Review of Systems - Constitutional Constitutional: absent: As Per HPI, Anorexia, Chills, Daytime Sleepiness, Excessive Sweating, Fatigue, Fever, Frequent Falls, Headache, Increased Appetite , Lethargy, Malaise, Night Sweats, Snoring, Sleep Apnea, Weight Gain, Weight Loss, Weakness, Other - EENT Eyes: absent: As Per HPI, Blind Spots, Blurred Vision, Change in Vision, Decreased Night Vision, Diplopia, Discharge, Dry Eye, Exophthalmos, Floaters, Irritation, Itchy Eyes, Loss of Peripheral Vision, Pain, Photophobia, Requires Corrective Lenses, Sees Flashes, Spots in Vision, Tunnel Vision, Other Visual Disturbances, Loss of Vision, Other Ears: absent: As Per HPI, Decreased Hearing, Ear Discharge, Ear Pain, Tinnitus, Abnormal Hearing, Disequilibrium, Dizziness, Other Nose/Mouth/Throat: absent: As Per HPI, Epistaxis, Nasal Congestion, Nasal Discharge, Nasal Obstruction, Nasal Trauma, Nose Pain, Post Nasal Drip, Sinus Pain, Sinus Pressure, Bleeding Gums, Change in Voice, Dental Pain, Dry Mouth, Dysphagia, Halitosis, Hoarsness, Lip Swelling, Mouth Lesions, Mouth Pain, Odynophagia, Sore Throat, Throat Swelling, Tongue Swelling, Facial Pain, Neck Pain, Neck Mass, Other - Breasts Breasts: absent: As Per HPI, Change in Shape, Mass, Pain, Nipple Discharge, Nipple Inversion, Skin Changes, Swelling, Other - Cardiovascular Cardiovascular: Dyspnea - Respiratory Respiratory: Dyspnea - Gastrointestinal Gastrointestinal: absent: As Per HPI, Abdominal Pain, Belching, Bloating, Change in Bowel Habits, Change in Stool Character, Coffee Ground Emesis, Constipation, Cramping, Diarrhea, Dyspepsia, Dysphagia, Early Satiety, Excessive Flatus, Fecal Incontinence, Heartburn, Hematemesis, Hematochezia, Loose Stools, Melena, Nausea, Odynophagia, Temesmus, Vomiting, Other - Genitourinary Genitourinary: absent: As Per HPI, Change in Urinary Stream, Difficulty Urinating, Dysuria, Flank Pain, Hematuria, Pyuria, Nocturia, Urinary Incontinence, Urinary Frequency, Urinary Hesitance, Urinary Urgency, Voiding Freq/Small Amts, Freq UTI, Hx Renal/Bladder Calculi, Hx /Renal Surgery, Bladder Distension, Other - Musculoskeletal Musculoskeletal: absent: As Per HPI, Abnormal Gait, Arthralgias, Atrophy, Back Pain, Deformity, Joint Swelling, Limited Range of Motion, Loss of Height, Muscle Cramps, Muscle Weakness, Myalgias, Neck Pain, Numbness, Radiating Pain into Limb, Stiffness, Tingling, Other - Integumentary Integumentary: absent: As Per HPI, Acne, Alopecia, Bleeding Lesions, Change in Hair, Change in Nails, Change in Pigmentation, Changing Lesions, Dry Skin, Erythema, Furuncle, Hirsutism, Lesions, New Lesions, Non-Healing Lesions, Photosensitivity, Pruritus, Rash, Skin Pain, Skin Ulcer, Sores, Striae, Swelling , Unusual Bruising, Wounds, Jaundice, Other - Neurological Neurological: absent: As Per HPI, Abnormal Gait, Abnormal Hearing, Abnormal Movements, Abnormal Speech, Behavioral Changes, Burning Sensations, Confusion, Convulsions, Disequilibrium, Dizziness, Numbness, Focal Weakness, Frequent Falls , Headaches, Lack of Coordination, Loss of Vision, Memory Loss, Paresthesias, Radicular Pain, Restless Legs, Sensory Deficit, Syncope, Tingling, Tremor, Vertigo, Weakness, Other Visual Disturbances, Other - Psychiatric Psychiatric: absent: As Per HPI, Abnormal Sleep Pattern, Anhedonia, Anxiety, Auditory Hallucinations, Behavioral Changes, Change in Appetite, Change in Libido, Confusion, Depression, Difficulty Concentrating, Hallucinations, Homicidal Ideation, Hopelessness, Irritability, Memory Loss, Mood Swings, Panic Attacks, Paranoia, Suicidal Ideation, Visual Hallucinations, Tactile Hallucinations, Other Past Patient History - Past Medical History & Family History Past Medical History?: Yes - Past Social History Smoking Status: Never Smoked - CARDIAC Hx Hypercholesterolemia: Yes Hx Hypertension: Yes - PULMONARY Hx Respiratory Disorders: No - NEUROLOGICAL Hx Neurological Disorder: No - HEENT Hx HEENT Problems: No - RENAL Hx Chronic Kidney Disease: No - ENDOCRINE/METABOLIC Hx Endocrine Disorders: Yes (dm) Hx Diabetes Mellitus Type 2: Yes (only take metformin at home) - HEMATOLOGICAL/ONCOLOGICAL Hx Blood Disorders: No Hx Human Immunodeficiency Virus (HIV): No - INTEGUMENTARY Hx Dermatological Problems: No - MUSCULOSKELETAL/RHEUMATOLOGICAL Hx Arthritis: Yes Hx Falls: No Hx Fractures: No - GASTROINTESTINAL Hx Gastrointestinal Disorders: No - GENITOURINARY/GYNECOLOGICAL Hx Genitourinary Disorders: No - PSYCHIATRIC Hx Psychophysiologic Disorder: No Hx Depression: Yes Hx Substance Use: No - SURGICAL HISTORY Hx Coronary Artery Bypass Graft: Yes - ANESTHESIA Hx Anesthesia: Yes Hx Anesthesia Reactions: No Hx Malignant Hyperthermia: No Meds Allergies/Adverse Reactions: Allergies Allergy/AdvReac Type Severity Reaction Status Date / Time No Known Allergies Allergy Verified 08/15/17 10:59 - Medications Medications: Current Medications Sodium Chloride (Sodium Chloride 0.9%) 1,000 mls @ 100 mls/hr IV .Q10H SERGE Last Admin: 08/15/17 11:28 Dose: 100 mls/hr Physical Exam - Constitutional Appears: Non-toxic - Head Exam Head Exam: NORMAL INSPECTION - Eye Exam Eye Exam: Normal appearance - ENT Exam ENT Exam: Mucous Membranes Moist - Neck Exam Neck exam: Positive for: Full Rom - Respiratory Exam Respiratory Exam: NORMAL BREATHING PATTERN - Cardiovascular Exam Cardiovascular Exam: REGULAR RHYTHM, Systolic Murmur - GI/Abdominal Exam GI & Abdominal Exam: Normal Bowel Sounds - Rectal Exam Rectal Exam: Deferred - Extremities Exam Extremities exam: Negative for: pedal edema - Back Exam Back exam: NORMAL INSPECTION - Neurological Exam Neurological exam: Alert, Oriented x3 - Psychiatric Exam Psychiatric exam: Normal Affect - Skin Skin Exam: Normal Color Results - Vital Signs Recent Vital Signs: Last Vital Signs Temp 98.3 F 08/15/17 17:00 Pulse 64 08/15/17 17:00 Resp 20 08/15/17 17:08 BP 157/85 H 08/15/17 17:00 Pulse Ox 96 08/15/17 17:00 - Labs Result Diagrams: 08/15/17 11:37 08/15/17 11:37 Labs: Laboratory Results - last 24 hr 08/15/17 08/15/17 08/15/17 10:59 11:37 11:37 WBC 7.2 RBC 4.82 Hgb 13.1 Hct 38.9 MCV 80.8 L MCH 27.1 MCHC 33.6 RDW 15.5 H Plt Count 302 MPV 8.5 Neut % (Auto) 62.8 Lymph % (Auto) 27.9 [place] % (Auto) 5.8 Eos % (Auto) 2.9 Baso % (Auto) 0.6 Neut # (Auto) 4.5 Lymph # (Auto) 2.0 [place] # (Auto) 0.4 Eos # (Auto) 0.2 Baso # (Auto) 0.0 PT INR APTT Sodium 135 Potassium 4.1 Chloride 97 L Carbon Dioxide 27 Anion Gap 15 BUN 13 Creatinine 0.6 L Est GFR ( Amer) > 60 Est GFR (Non-Af Amer) > 60 POC Glucose (mg/dL) 328 H Random Glucose 366 H Hemoglobin A1c Calcium 9.4 Total Bilirubin 0.8 AST 35 ALT 34 Alkaline Phosphatase 67 Troponin I < 0.0120 Total Protein 7.8 Albumin 4.1 Globulin 3.7 Albumin/Globulin Ratio 1.1 Triglycerides 101 D Cholesterol 186 LDL Cholesterol Direct 92 HDL Cholesterol 57 Blood Type Antibody Screen BBK History Checked 08/15/17 08/15/17 08/15/17 11:37 11:37 11:37 WBC RBC Hgb Hct MCV MCH MCHC RDW Plt Count MPV Neut % (Auto) Lymph % (Auto) [place] % (Auto) Eos % (Auto) Baso % (Auto) Neut # (Auto) Lymph # (Auto) [place] # (Auto) Eos # (Auto) Baso # (Auto) PT 10.9 INR 1.0 APTT 32.5 Sodium Potassium Chloride Carbon Dioxide Anion Gap BUN Creatinine Est GFR ( Amer) Est GFR (Non-Af Amer) POC Glucose (mg/dL) Random Glucose Hemoglobin A1c 9.4 H D Calcium Total Bilirubin AST ALT Alkaline Phosphatase Troponin I Total Protein Albumin Globulin Albumin/Globulin Ratio Triglycerides Cholesterol LDL Cholesterol Direct HDL Cholesterol Blood Type A POSITIVE Antibody Screen Negative BBK History Checked No verified bt 08/15/17 08/15/17 13:25 16:31 WBC RBC Hgb Hct MCV MCH MCHC RDW Plt Count MPV Neut % (Auto) Lymph % (Auto) [place] % (Auto) Eos % (Auto) Baso % (Auto) Neut # (Auto) Lymph # (Auto) [place] # (Auto) Eos # (Auto) Baso # (Auto) PT INR APTT Sodium Potassium Chloride Carbon Dioxide Anion Gap BUN Creatinine Est GFR ( Amer) Est GFR (Non-Af Amer) POC Glucose (mg/dL) 194 H 218 H Random Glucose Hemoglobin A1c Calcium Total Bilirubin AST ALT Alkaline Phosphatase Troponin I Total Protein Albumin Globulin Albumin/Globulin Ratio Triglycerides Cholesterol LDL Cholesterol Direct HDL Cholesterol Blood Type Antibody Screen BBK History Checked - EKG Data EKG Interpreted by: Myself EKG shows normal: Sinus rhythm Assessment & Plan (1) Dyspnea Assessment and Plan: patient has a systolic murmur on examination. recommend echocardiogram. Status: Acute (2) CAD (coronary artery disease) Assessment and Plan: check cardiac enzymes Status: Acute (3) HTN (hypertension) Assessment and Plan: will assist with blood pressure control Status: Acute (4) Type 2 diabetes mellitus with hyperglycemia Assessment and Plan: glucose control Status: Acute
[2017-08-15] MEDS: Calcium-Vit D 500 mg-200 Units Tab UD PO SCH (20:36)
[2017-08-15] MEDS ORDERED: Patient's Own Med (Calcium Carbonate/Vitamin D3 [Calcium 600 + Vit D Tablet] 1 TAB) PO SCH (21:00)
[2017-08-15 23:59] VITALS: RESP 18
[2017-08-16 05:45] LABS: BASO % 0.4 % (0.0-2.0); EOS # 0.3 K/uL (0.0-0.7); EOS % 3.7 % (0.0-4.0); LYMPH # 3.3 K/uL (1.0-4.3); LYMPH % 41.8 % (20.0-40.0); MEAN CORPUSCULAR HEMOGLOBIN 26.6 pg (27.0-31.0); MEAN CORPUSCULAR HGB CONC 32.8 g/dL (33.0-37.0); MEAN PLATELET VOLUME 8.3 fl (7.2-11.7); MONO # 0.5 K/uL (0.0-0.8); MONO % 6.2 % (0.0-10.0); NEUT # 3.7 K/uL (1.8-7.0); NEUT % 47.9 % (50.0-75.0); NRBC % 0.1 % (0.0-0.0); RBC 4.88 Mil/uL (3.80-5.20); RED CELL DISTRIBUTION WIDTH 15.2 % (11.5-14.5); WHITE BLOOD COUNT 7.8 K/uL (4.8-10.8)
[2017-08-16 05:58] LABS: ALB/GLOB RATIO 1.1 (1.0-2.1); ALBUMIN 3.6 g/dL (3.5-5.0); ALT/SGPT 37 U/L (9-52); AST/SGOT 24 U/L (14-36); BLOOD UREA NITROGEN 15 mg/dl (7-17); CALCIUM 9.3 mg/dL (8.4-10.2); GFR AFRICAN-AMERICAN > 60; GFR NON-AFRICAN AMERICAN > 60
[2017-08-16 07:40] VITALS: TEMP 98.2
--- NOTE | 2017-08-16 08:00 | CP.PCM.HP ---
History of Present Illness - History of Present Illness History of Present Illness: pt admitted for cp, dizziness and uncontrolled dm 2 w/ gluocse upt o 500s. at present only w/ mild dizziness no cp, dyspnea cardio note appriciated, trops negative, echo pending. no f/c, n/v/d Present on Admission - Present on Admission Any Indicators Present on Admission: Yes History of Uncontrolled Diabetes: Yes Review of Systems - Cardiovascular Cardiovascular: As Per HPI, Chest Pain - Neurological Neurological: As Per HPI, Dizziness Past Patient History - Past Medical History & Family History Past Medical History?: Yes - Past Social History Smoking Status: Never Smoked - CARDIAC Hx Hypercholesterolemia: Yes Hx Hypertension: Yes - PULMONARY Hx Respiratory Disorders: No - NEUROLOGICAL Hx Neurological Disorder: No - HEENT Hx HEENT Problems: No - RENAL Hx Chronic Kidney Disease: No - ENDOCRINE/METABOLIC Hx Endocrine Disorders: Yes (dm) Hx Diabetes Mellitus Type 2: Yes (only take metformin at home) - HEMATOLOGICAL/ONCOLOGICAL Hx Blood Disorders: No Hx Human Immunodeficiency Virus (HIV): No - INTEGUMENTARY Hx Dermatological Problems: No - MUSCULOSKELETAL/RHEUMATOLOGICAL Hx Arthritis: Yes Hx Falls: No Hx Fractures: No - GASTROINTESTINAL Hx Gastrointestinal Disorders: No - GENITOURINARY/GYNECOLOGICAL Hx Genitourinary Disorders: No - PSYCHIATRIC Hx Psychophysiologic Disorder: No Hx Depression: Yes Hx Substance Use: No - SURGICAL HISTORY Hx Coronary Artery Bypass Graft: Yes - ANESTHESIA Hx Anesthesia: Yes Hx Anesthesia Reactions: No Hx Malignant Hyperthermia: No Meds Allergies/Adverse Reactions: Allergies Allergy/AdvReac Type Severity Reaction Status Date / Time No Known Allergies Allergy Verified 08/15/17 10:59 Physical Exam - Constitutional Appears: Well, Non-toxic, No Acute Distress - Head Exam Head Exam: ATRAUMATIC, NORMAL INSPECTION, NORMOCEPHALIC - Eye Exam Eye Exam: EOMI, Normal appearance, PERRL Pupil Exam: NORMAL ACCOMODATION, PERRL - ENT Exam ENT Exam: Mucous Membranes Moist, Normal Exam - Neck Exam Neck exam: Positive for: Normal Inspection - Respiratory Exam Respiratory Exam: Clear to Auscultation Bilateral, NORMAL BREATHING PATTERN - Cardiovascular Exam Cardiovascular Exam: REGULAR RHYTHM, RRR, +S1, +S2, Systolic Murmur - GI/Abdominal Exam GI & Abdominal Exam: Normal Bowel Sounds, Soft. absent: Tenderness - Extremities Exam Extremities exam: Positive for: full ROM, normal capillary refill, normal inspection, pedal pulses present - Back Exam Back exam: NORMAL INSPECTION - Neurological Exam Neurological exam: Alert, CN II-XII Intact, Normal Gait, Oriented x3, Reflexes Normal - Psychiatric Exam Psychiatric exam: Normal Affect, Normal Mood - Skin Skin Exam: Dry, Intact, Normal Color, Warm Results - Vital Signs Recent Vital Signs: Last Vital Signs Temp 98.2 F 08/16/17 07:39 Pulse 55 L 08/16/17 07:39 Resp 18 08/16/17 07:39 BP 147/82 08/16/17 07:39 Pulse Ox 98 08/16/17 07:39 - Labs Result Diagrams: 08/16/17 05:00 08/16/17 05:00 Labs: Laboratory Results - last 24 hr 08/15/17 08/15/17 08/15/17 10:59 11:37 11:37 WBC 7.2 RBC 4.82 Hgb 13.1 Hct 38.9 MCV 80.8 L MCH 27.1 MCHC 33.6 RDW 15.5 H Plt Count 302 MPV 8.5 Neut % (Auto) 62.8 Lymph % (Auto) 27.9 [place] % (Auto) 5.8 Eos % (Auto) 2.9 Baso % (Auto) 0.6 Neut # (Auto) 4.5 Lymph # (Auto) 2.0 [place] # (Auto) 0.4 Eos # (Auto) 0.2 Baso # (Auto) 0.0 PT INR APTT Sodium 135 Potassium 4.1 Chloride 97 L Carbon Dioxide 27 Anion Gap 15 BUN 13 Creatinine 0.6 L Est GFR ( Amer) > 60 Est GFR (Non-Af Amer) > 60 POC Glucose (mg/dL) 328 H Random Glucose 366 H Hemoglobin A1c Calcium 9.4 Total Bilirubin 0.8 AST 35 ALT 34 Alkaline Phosphatase 67 Troponin I < 0.0120 Total Protein 7.8 Albumin 4.1 Globulin 3.7 Albumin/Globulin Ratio 1.1 Triglycerides 101 D Cholesterol 186 LDL Cholesterol Direct 92 HDL Cholesterol 57 Blood Type Blood Type Confirm Antibody Screen BBK History Checked 08/15/17 08/15/17 08/15/17 11:37 11:37 11:37 WBC RBC Hgb Hct MCV MCH MCHC RDW Plt Count MPV Neut % (Auto) Lymph % (Auto) [place] % (Auto) Eos % (Auto) Baso % (Auto) Neut # (Auto) Lymph # (Auto) [place] # (Auto) Eos # (Auto) Baso # (Auto) PT 10.9 INR 1.0 APTT 32.5 Sodium Potassium Chloride Carbon Dioxide Anion Gap BUN Creatinine Est GFR ( Amer) Est GFR (Non-Af Amer) POC Glucose (mg/dL) Random Glucose Hemoglobin A1c 9.4 H D Calcium Total Bilirubin AST ALT Alkaline Phosphatase Troponin I Total Protein Albumin Globulin Albumin/Globulin Ratio Triglycerides Cholesterol LDL Cholesterol Direct HDL Cholesterol Blood Type A POSITIVE Blood Type Confirm Antibody Screen Negative BBK History Checked No verified bt 08/15/17 08/15/17 08/15/17 13:25 16:31 17:30 WBC RBC Hgb Hct MCV MCH MCHC RDW Plt Count MPV Neut % (Auto) Lymph % (Auto) [place] % (Auto) Eos % (Auto) Baso % (Auto) Neut # (Auto) Lymph # (Auto) [place] # (Auto) Eos # (Auto) Baso # (Auto) PT INR APTT Sodium Potassium Chloride Carbon Dioxide Anion Gap BUN Creatinine Est GFR ( Amer) Est GFR (Non-Af Amer) POC Glucose (mg/dL) 194 H 218 H 197 H Random Glucose Hemoglobin A1c Calcium Total Bilirubin AST ALT Alkaline Phosphatase Troponin I Total Protein Albumin Globulin Albumin/Globulin Ratio Triglycerides Cholesterol LDL Cholesterol Direct HDL Cholesterol Blood Type Blood Type Confirm Antibody Screen BBK History Checked 08/15/17 08/15/17 08/16/17 18:25 21:45 05:00 WBC 7.8 RBC 4.88 Hgb 13.0 Hct 39.5 MCV 81.0 MCH 26.6 L MCHC 32.8 L RDW 15.2 H Plt Count 301 MPV 8.3 Neut % (Auto) 47.9 L Lymph % (Auto) 41.8 H [place] % (Auto) 6.2 Eos % (Auto) 3.7 Baso % (Auto) 0.4 Neut # (Auto) 3.7 Lymph # (Auto) 3.3 [place] # (Auto) 0.5 Eos # (Auto) 0.3 Baso # (Auto) 0.0 PT INR APTT Sodium Potassium Chloride Carbon Dioxide Anion Gap BUN Creatinine Est GFR ( Amer) Est GFR (Non-Af Amer) POC Glucose (mg/dL) 163 H Random Glucose Hemoglobin A1c Calcium Total Bilirubin AST ALT Alkaline Phosphatase Troponin I Total Protein Albumin Globulin Albumin/Globulin Ratio Triglycerides Cholesterol LDL Cholesterol Direct HDL Cholesterol Blood Type Blood Type Confirm A POSITIVE Antibody Screen BBK History Checked 08/16/17 08/16/17 05:00 05:07 WBC RBC Hgb Hct MCV MCH MCHC RDW Plt Count MPV Neut % (Auto) Lymph % (Auto) [place] % (Auto) Eos % (Auto) Baso % (Auto) Neut # (Auto) Lymph # (Auto) [place] # (Auto) Eos # (Auto) Baso # (Auto) PT INR APTT Sodium 137 Potassium 4.0 Chloride 97 L Carbon Dioxide 30 Anion Gap 14 BUN 15 Creatinine 0.7 Est GFR ( Amer) > 60 Est GFR (Non-Af Amer) > 60 POC Glucose (mg/dL) 236 H Random Glucose 247 H Hemoglobin A1c Calcium 9.3 Total Bilirubin 0.5 AST 24 ALT 37 Alkaline Phosphatase 64 Troponin I < 0.0120 Total Protein 6.7 Albumin 3.6 Globulin 3.2 Albumin/Globulin Ratio 1.1 Triglycerides Cholesterol LDL Cholesterol Direct HDL Cholesterol Blood Type Blood Type Confirm Antibody Screen BBK History Checked Assessment & Plan (1) Chest pain Assessment and Plan: trops negative cardio echo cont home meds Status: Acute (2) Dizziness Assessment and Plan: ?? r/t systolic murmur ?? ivf cardio echo Status: Acute (3) DVT prophylaxis Assessment and Plan: scd nad ae hose asa/plavix hold lovenox until admitted over 24h Status: Acute (4) Type 2 diabetes mellitus with hyperglycemia Assessment and Plan: riss,home meds, fsbg, diet control Status: Acute Decision To Admit - Pt Status Changed To: Hospital Disposition Of: Observation - . Bed Request Type: Telemetry Admitting Physician: Nba Garzon
[2017-08-16] MEDS ORDERED: Patient's Own Med (Losartan/Hydrochlorothiazide [Hyzaar 100-25 Tablet] 1 TAB) PO SCH (09:00)
[2017-08-16] MEDS ORDERED: Pantoprazole 40 mg EC Tab PO SCH (09:00)
[2017-08-16] MEDS: Calcium-Vit D 500 mg-200 Units Tab UD PO SCH (09:39)
[2017-08-16] MEDS ORDERED: Insulin Regular 100 units/ml SC SCH (11:30)
[2017-08-16 12:20] VITALS: BP 148/82; PULSE 67; O2SAT 95
--- NOTE | 2017-08-16 14:05 | CARD ---
APPROVED REPORT EKG Measurement Heart [id number] ND [id number] <Conclusion> Sinus bradycardia Nonspecific T wave abnormality Prolonged QT Abnormal ECG
--- NOTE | 2017-08-16 14:58 | CP.PCM.DIS ---
Provider - Provider Date of Admission: 08/15/17 13:59 Attending physician: Nba Garzon MD Time Spent in preparation of Discharge (in minutes): 15 Diagnosis - Discharge Diagnosis (1) Chest pain Status: Acute (2) Dizziness Status: Acute (3) DVT prophylaxis Status: Acute (4) Type 2 diabetes mellitus with hyperglycemia Status: Acute Hospital Course - Lab Results Lab Results: Most Recent Lab Values WBC 7.8 K/uL (4.8-10.8) 08/16/17 05:00 RBC 4.88 Mil/uL (3.80-5.20) 08/16/17 05:00 Hgb 13.0 g/dL (12.0-16.0) 08/16/17 05:00 Hct 39.5 % (34.0-47.0) 08/16/17 05:00 MCV 81.0 fl (81.0-99.0) 08/16/17 05:00 MCH 26.6 pg (27.0-31.0) L 08/16/17 05:00 MCHC 32.8 g/dL (33.0-37.0) L 08/16/17 05:00 RDW 15.2 % (11.5-14.5) H 08/16/17 05:00 Plt Count 301 K/uL (130-400) 08/16/17 05:00 MPV 8.3 fl (7.2-11.7) 08/16/17 05:00 Neut % (Auto) 47.9 % (50.0-75.0) L 08/16/17 05:00 Lymph % (Auto) 41.8 % (20.0-40.0) H 08/16/17 05:00 [place] % (Auto) 6.2 % (0.0-10.0) 08/16/17 05:00 Eos % (Auto) 3.7 % (0.0-4.0) 08/16/17 05:00 Baso % (Auto) 0.4 % (0.0-2.0) 08/16/17 05:00 Neut # (Auto) 3.7 K/uL (1.8-7.0) 08/16/17 05:00 Lymph # (Auto) 3.3 K/uL (1.0-4.3) 08/16/17 05:00 [place] # (Auto) 0.5 K/uL (0.0-0.8) 08/16/17 05:00 Eos # (Auto) 0.3 K/uL (0.0-0.7) 08/16/17 05:00 Baso # (Auto) 0.0 K/uL (0.0-0.2) 08/16/17 05:00 PT 10.9 Seconds (9.8-13.1) 08/15/17 11:37 INR 1.0 (0.9-1.2) 08/15/17 11:37 APTT 32.5 Seconds (25.6-37.1) 08/15/17 11:37 Sodium 137 mmol/l (132-148) 08/16/17 05:00 Potassium 4.0 MMOL/L (3.6-5.0) 08/16/17 05:00 Chloride 97 mmol/L (98-107) L 08/16/17 05:00 Carbon Dioxide 30 mmol/L (22-30) 08/16/17 05:00 Anion Gap 14 (10-20) 08/16/17 05:00 BUN 15 mg/dl (7-17) 08/16/17 05:00 Creatinine 0.7 mg/dl (0.7-1.2) 08/16/17 05:00 Est GFR ( Amer) > 60 08/16/17 05:00 Est GFR (Non-Af Amer) > 60 08/16/17 05:00 POC Glucose (mg/dL) 239 mg/dL (65-110) H 08/16/17 11:37 Random Glucose 247 mg/dL (65-105) H 08/16/17 05:00 Hemoglobin A1c 9.4 % (4.2-6.5) H D 08/15/17 11:37 Calcium 9.3 mg/dL (8.4-10.2) 08/16/17 05:00 Total Bilirubin 0.5 mg/dl (0.2-1.3) 08/16/17 05:00 AST 24 U/L (14-36) 08/16/17 05:00 ALT 37 U/L (9-52) 08/16/17 05:00 Alkaline Phosphatase 64 U/L (38-126) 08/16/17 05:00 Troponin I < 0.0120 ng/mL (0.00-0.120) 08/16/17 05:00 Total Protein 6.7 G/DL (6.3-8.2) 08/16/17 05:00 Albumin 3.6 g/dL (3.5-5.0) 08/16/17 05:00 Globulin 3.2 gm/dL (2.2-3.9) 08/16/17 05:00 Albumin/Globulin Ratio 1.1 (1.0-2.1) 08/16/17 05:00 Triglycerides 101 mg/DL (0-149) D 08/15/17 11:37 Cholesterol 186 mg/dL (0-199) 08/15/17 11:37 LDL Cholesterol Direct 92 mg/dL (0-129) 08/15/17 11:37 HDL Cholesterol 57 MG/DL (30-70) 08/15/17 11:37 Blood Type A POSITIVE 08/15/17 11:37 Blood Type Confirm A POSITIVE 08/15/17 18:25 Antibody Screen Negative 08/15/17 11:37 BBK History Checked No verified bt 08/15/17 11:37 - Hospital Course Hospital Course: meclizine, ivf, cardio, trops, echo Discharge Exam - Head Exam Head Exam: ATRAUMATIC, NORMAL INSPECTION, NORMOCEPHALIC Discharge Plan - Discharge Medications Prescriptions: Meclizine [Meclizine*] 25 mg PO Q12 PRN #30 tab PRN Reason: Dizziness - Follow Up Plan Condition: FAIR Disposition: HOME/ ROUTINE Instructions: Chest Pain (DC), Diabetes and Diet Additional Instructions: final dx-hyperglycemia, dizziness, cp cleared by cardio glucose trending down diet control, hydration, meclizine e-rx follow up with tomorrow. rted prn outpt halter, stress test Referrals: Nba Garzon MD [Family Provider] -
--- NOTE | 2017-08-17 11:29 | CARD ---
APPROVED REPORT EXAM: Two-dimensional and M-mode echocardiogram with Doppler and color Doppler. Other Information Quality : GoodRhythm : NSR INDICATION Dyspnea Surgery/Intervention CABG: Date: 2004 2D DIMENSIONS IVSd0.98 (0.7-1.1cm)LVDd4.20 (3.9-5.9cm) LVOT Diameter1.79 (1.8-2.4cm)PWd1.10 (0.7-1.1cm) IVSs1.51 (0.8-1.2cm)LVDs3.27 (2.5-4.0cm) FS (%) 22.0 %PWs1.44 (0.8-1.2cm) M-Mode DIMENSIONS Left Atrium (MM)4.85 (2.5-4.0cm)IVSd1.08 (0.7-1.1cm) Aortic Root2.65 (2.2-3.7cm)LVDd5.51 (4.0-5.6cm) Aortic Cusp Exc.1.85 (1.5-2.0cm)PWd0.80 (0.7-1.1cm) IVSs1.38 cmFS (%) 44 % LVDs3.12 (2.0-3.8cm)PWs1.65 cm Mitral Valve MV E Mkgrekdx10.1cm/sMV DECEL [id number] A Ktgsvdbu608.0cm/s MV QJS420mnN/A ratio0.9MVA (PHT)2.15cm2 TDI Lateral E' Peak V8.88cm/sMedial E' Peak V6.44cm/sE/Lateral E'9.8 E/Medial E'13.5 Pulmonary Valve PV Peak Srzrcpyy50.5cm/s LEFT VENTRICLE The left ventricle is normal size. There is normal left ventricular wall thickness. The left ventricular function is normal. The left ventricular ejection fraction is within the normal range. The Ejection Fraction is 50-55%. There is normal LV segmental wall motion. Transmitral Doppler flow pattern is Grade I-abnormal relaxation pattern. RIGHT VENTRICLE The right ventricle is normal size. The right ventricular systolic function is normal. ATRIA The left atrium size is normal. The right atrium size is normal. AORTIC VALVE The aortic valve is normal in structure. No aortic regurgitation is present. There is no aortic valvular stenosis. MITRAL VALVE The mitral valve is normal in structure. There is no mitral valve stenosis. Mitral regurgitation is trace to mild. TRICUSPID VALVE The tricuspid valve is normal in structure. There is no tricuspid valve regurgitation noted. There is no tricuspid valve stenosis. PULMONIC VALVE The pulmonary valve is normal in structure. There is no pulmonic valvular regurgitation. GREAT VESSELS The aortic root is normal in size. The IVC is normal in size and collapses >50% with inspiration. PERICARDIAL EFFUSION The pericardium appears normal. <Conclusion> The left ventricle is normal size. The left ventricular function is normal. The left ventricular ejection fraction is within the normal range. The Ejection Fraction is 50-55%. Mitral regurgitation is trace to mild.
== END 2017-08-16 14:10 | disposition home or self-care (01) ==
LOC: H.ER 10:30 → H.ERHOLD 13:59 → H.TEL 16:54
PROVIDERS: ADMIT Family Medicine; ATTEND Family Medicine
DX: R07.89 Other chest pain (principal); R42 Dizziness and giddiness; E11.65 Type 2 diabetes mellitus with hyperglycemia; I25.10 Atherosclerotic heart disease of native coronary artery without angina pectoris; I10 Essential (primary) hypertension; E78.00 Pure hypercholesterolemia, unspecified; R32 Unspecified urinary incontinence; M19.90 Unspecified osteoarthritis, unspecified site; Z23 Encounter for immunization; Z95.1 Presence of aortocoronary bypass graft; Z79.02 Long term (current) use of antithrombotics/antiplatelets; Z79.4 Long term (current) use of insulin
CPT/HCPCS: 36415; 70450; 71045; 80053; 80061; 82948; 83036; 84484; 85025; 85610; 85730; 86850; 86900; 90471; 90732; 93005; 93306; 99285; G0378; J7040

== ENCOUNTER 2017-12-26 18:06 | Observation (INO) | payer MEDICAID ==
[2017-12-26 18:07] VITALS: BMI 33.6
[2017-12-26 20:07] LABS: BASO # 0.1 K/uL (0.0-0.2); BASO % 0.6 % (0.0-2.0); EOS # 0.3 K/uL (0.0-0.7); EOS % 2.8 % (0.0-4.0); HEMOGLOBIN 11.5 g/dL (12.0-16.0); LYMPH # 3.6 K/uL (1.0-4.3); MEAN CELL VOLUME 83.1 fl (81.0-99.0); MEAN CORPUSCULAR HEMOGLOBIN 26.8 pg (27.0-31.0); MEAN CORPUSCULAR HGB CONC 32.2 g/dL (33.0-37.0); MEAN PLATELET VOLUME 8.7 fl (7.2-11.7); MONO # 0.7 K/uL (0.0-0.8); MONO % 7.1 % (0.0-10.0); NEUT # 4.9 K/uL (1.8-7.0); NEUT % 51.5 % (50.0-75.0); RBC 4.31 Mil/uL (3.80-5.20); RED CELL DISTRIBUTION WIDTH 15.1 % (11.5-14.5); WHITE BLOOD COUNT 9.4 K/uL (4.8-10.8)
[2017-12-26 20:09] LABS: ALB/GLOB RATIO 1.1 (1.0-2.1); ALBUMIN 3.9 g/dL (3.5-5.0); ALT/SGPT 26 U/L (9-52); AST/SGOT 34 U/L (14-36); BLOOD UREA NITROGEN 16 mg/dl (7-17); CALCIUM 9.5 mg/dL (8.4-10.2); GFR NON-AFRICAN AMERICAN > 60
--- NOTE | 2017-12-26 20:14 | ED PDOC ---
HPI: Chest Pain Time Seen by Provider: 12/26/17 19:11 Chief Complaint (Nursing): Chest Pain Chief Complaint (Provider): Chest Pain History Per: Patient History/Exam Limitations: no limitations Onset/Duration Of Symptoms: Days (x2) Pain Scale Rating Of: 7 Additional Complaint(s): Patient is a 62 y/o female with history of HTN, diabetes, and hypercholesterolemia, and has also had a CABG, who presents to the ED complaining of chest pain for the past x2 days that has been worsening. Patient describes the pain as currently a 7/10. She states she took her nitro as normal. She denies fever or vomiting but does report having a dry, non productive cough for the past x2 days. PMD: [place] Past Medical History Reviewed: Historical Data, Nursing Documentation, Vital Signs Vital Signs: Last Vital Signs Temp 98.9 F 12/26/17 19:31 Pulse 65 12/26/17 19:31 Resp 16 12/26/17 18:09 BP 147/73 12/26/17 19:31 Pulse Ox 100 12/26/17 19:31 - Medical History PMH: Arthritis, CAD, Depression, Diabetes, HTN, Hypercholesterolemia Denies: Fractures, HIV, Chronic Kidney Disease - Surgical History Surgical History: CABG - Family History Family History: States: Diabetes, Hypertension - Home Medications Home Medications: Ambulatory Orders Medication Instructions Recorded Atorvastatin [Lipitor] 80 mg PO DAILY 01/13/16 Citalopram Hydrobromide 40 mg PO DAILY 01/13/16 [Citalopram HBr] Clopidogrel [Plavix] 75 mg PO DAILY 01/13/16 Fenofibrate,Micronized [Lofibra] 134 mg PO DAILY 01/13/16 Ibuprofen [Motrin Tab] 600 mg PO Q8H PRN 01/13/16 Losartan/Hydrochlorothiazide 1 tab PO DAILY 01/13/16 [Hyzaar 100-25 Tablet] Nitroglycerin [Nitrostat] 0.4 mg SL Q5MIN PRN 01/13/16 amLODIPine [Norvasc] 5 mg PO DAILY 06/05/16 Alogliptin Benzoate [Alogliptin] 25 mg PO DAILY 08/15/17 Calcium Carbonate/Vitamin D3 1 tab PO Q12 08/15/17 [Calcium 600 + Vit D Tablet] Dicyclomine [Bentyl] 10 mg PO DAILY PRN 08/15/17 MetFORMIN [glucoPHAGE] 1,000 mg PO BID 08/15/17 Ondansetron [Zofran Tab] 4 mg PO Q6 PRN 08/15/17 Pantoprazole Sodium [Protonix] 40 mg PO DAILY 08/15/17 - Allergies Allergies/Adverse Reactions: Allergies Allergy/AdvReac Type Severity Reaction Status Date / Time No Known Allergies Allergy Verified 08/15/17 10:59 Review of Systems ROS Statement: Except As Marked, All Systems Reviewed And Found Negative Constitutional: Negative for: Fever Cardiovascular: Positive for: Chest Pain Gastrointestinal: Negative for: Vomiting Physical Exam - Reviewed Nursing Documentation Reviewed: Yes Vital Signs Reviewed: Yes - Physical Exam Appears: Positive for: Non-toxic, No Acute Distress Head Exam: Positive for: ATRAUMATIC, NORMOCEPHALIC Skin: Positive for: Normal Color, Warm, Dry Eye Exam: Positive for: EOMI, Normal appearance, PERRL Neck: Positive for: Normal, Painless ROM Cardiovascular/Chest: Positive for: Regular Rate, Rhythm. Negative for: Murmur Respiratory: Positive for: Normal Breath Sounds. Negative for: Respiratory Distress Gastrointestinal/Abdominal: Positive for: Normal Exam, Soft. Negative for: Tenderness Back: Positive for: Normal Inspection. Negative for: L CVA Tenderness, R CVA Tenderness Extremity: Positive for: Normal ROM. Negative for: Pedal Edema, Deformity, Swelling Neurologic/Psych: Positive for: Alert, Oriented. Negative for: Motor/Sensory Deficits - Laboratory Results Result Diagrams: 12/26/17 19:34 12/26/17 19:34 - ECG O2 Sat by Pulse Oximetry: 100 (RA) Pulse Ox Interpretation: Normal Medical Decision Making Medical Decision Making: Time: 19:18 Impression: Chest pain Initial Plan: CMP Troponin CBC w/ diff CXR 2 views Aspirin 81 mg Time: 22:42 Patient does not want morphine. Will give Motrin instead. Scribe Attestation: Documented by Gabino Lovelace, acting as a scribe for Jane Russo MD Provider Scribe Attestation: All medical record entries made by the Scribe were at my direction and personally dictated by me. I have reviewed the chart and agree that the record accurately reflects my personal performance of the history, physical exam, medical decision making, and the department course for this patient. I have also personally directed, reviewed, and agree with the discharge instructions and disposition. Disposition - Disposition
[2017-12-27 07:11] LABS: HEMOGLOBIN 11.5 g/dL (12.0-16.0); MEAN CELL VOLUME 82.2 fl (81.0-99.0); MEAN CORPUSCULAR HEMOGLOBIN 27.1 pg (27.0-31.0); MEAN CORPUSCULAR HGB CONC 32.9 g/dL (33.0-37.0); RBC 4.24 Mil/uL (3.80-5.20); WHITE BLOOD COUNT 7.5 K/uL (4.8-10.8)
[2017-12-27 07:28] LABS: ALB/GLOB RATIO 1.1 (1.0-2.1); ALBUMIN 3.6 g/dL (3.5-5.0); ALT/SGPT 28 U/L (9-52); AST/SGOT 27 U/L (14-36); BLOOD UREA NITROGEN 15 mg/dl (7-17); CALCIUM 9.2 mg/dL (8.4-10.2); GFR NON-AFRICAN AMERICAN > 60
[2017-12-27] MEDS ORDERED: FENOFIBRATE MICRONIZED 134 MG PO SCH (09:00)
[2017-12-27] MEDS ORDERED: Patient's Own Med (Losartan/Hydrochlorothiazide [Hyzaar 100-25 Tablet] 1 TAB) PO SCH (09:00)
[2017-12-27] MEDS ORDERED: Patient's Own Med (Calcium Carbonate/Vitamin D3 [Calcium 600 + Vit D Tablet] 1 TAB) PO SCH (09:00)
[2017-12-27] MEDS ORDERED: Pantoprazole 40 mg EC Tab PO SCH (09:00)
[2017-12-27] MEDS ORDERED: Calcium-Vit D 500 mg-200 Units Tab UD PO SCH (09:00)
--- NOTE | 2017-12-27 09:09 | CP.PCM.HP ---
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 no f/c, n/v/d/. no cough/congestion bw and cxr noted. trops x 2 negative. echo 08/2017 cardio consult pending. Present on Admission - Present on Admission Any Indicators Present on Admission: Yes History of Uncontrolled Diabetes: Yes Review of Systems - Cardiovascular Cardiovascular: As Per HPI, Chest Pain Past Patient History - Past Medical History & Family History Past Medical History?: Yes - Past Social History Smoking Status: Never Smoked - CARDIAC Hx Hypercholesterolemia: Yes Hx Hypertension: Yes - PULMONARY Hx Respiratory Disorders: No - NEUROLOGICAL Hx Neurological Disorder: No - HEENT Hx HEENT Problems: No - RENAL Hx Chronic Kidney Disease: No - ENDOCRINE/METABOLIC Hx Endocrine Disorders: Yes (DM) Hx Diabetes Mellitus Type 2: Yes - HEMATOLOGICAL/ONCOLOGICAL Hx AIDS: No Hx Human Immunodeficiency Virus (HIV): No - INTEGUMENTARY Hx Dermatological Problems: No - MUSCULOSKELETAL/RHEUMATOLOGICAL Hx Arthritis: Yes Hx Falls: No - GASTROINTESTINAL Hx Gastrointestinal Disorders: No - GENITOURINARY/GYNECOLOGICAL Hx Genitourinary Disorders: No - PSYCHIATRIC Hx Substance Use: No - SURGICAL HISTORY Hx Coronary Artery Bypass Graft: Yes Hx Hysterectomy: Yes - ANESTHESIA Hx Anesthesia: Yes Hx Anesthesia Reactions: No Hx Malignant Hyperthermia: No Meds Allergies/Adverse Reactions: Allergies Allergy/AdvReac Type Severity Reaction Status Date / Time No Known Allergies Allergy Verified 08/15/17 10:59 Physical Exam - Constitutional Appears: Well, Non-toxic, No Acute Distress - Head Exam Head Exam: ATRAUMATIC, NORMAL INSPECTION, NORMOCEPHALIC - Eye Exam Eye Exam: EOMI, Normal appearance, PERRL Pupil Exam: NORMAL ACCOMODATION, PERRL - ENT Exam ENT Exam: Mucous Membranes Moist, Normal Exam - Neck Exam Neck exam: Positive for: Normal Inspection - Respiratory Exam Respiratory Exam: Clear to Auscultation Bilateral, NORMAL BREATHING PATTERN - Cardiovascular Exam Cardiovascular Exam: REGULAR RHYTHM, RRR, +S1, +S2 - GI/Abdominal Exam GI & Abdominal Exam: Normal Bowel Sounds, Soft. absent: Tenderness - Extremities Exam Extremities exam: Positive for: full ROM, normal capillary refill, normal inspection, pedal pulses present - Back Exam Back exam: NORMAL INSPECTION - Neurological Exam Neurological exam: Alert, CN II-XII Intact, Normal Gait, Oriented x3, Reflexes Normal - Psychiatric Exam Psychiatric exam: Normal Affect, Normal Mood - Skin Skin Exam: Dry, Intact, Normal Color, Warm Results - Vital Signs Recent Vital Signs: Last Vital Signs Temp 97.6 F 12/27/17 07:43 Pulse 54 L 12/27/17 08:14 Resp 18 12/27/17 07:43 BP 161/79 H 12/27/17 08:14 Pulse Ox 99 12/27/17 07:43 - Labs Result Diagrams: 12/27/17 06:51 12/27/17 06:51 Labs: Laboratory Results - last 24 hr 12/26/17 12/26/17 12/26/17 19:34 19:34 23:17 WBC 9.4 RBC 4.31 Hgb 11.5 L Hct 35.8 MCV 83.1 D MCH 26.8 L MCHC 32.2 L RDW 15.1 H Plt Count 335 MPV 8.7 Neut % (Auto) 51.5 Lymph % (Auto) 38.0 [place] % (Auto) 7.1 Eos % (Auto) 2.8 Baso % (Auto) 0.6 Neut # (Auto) 4.9 Lymph # (Auto) 3.6 [place] # (Auto) 0.7 Eos # (Auto) 0.3 Baso # (Auto) 0.1 Sodium 141 Potassium 3.6 Chloride 105 Carbon Dioxide 30 Anion Gap 10 BUN 16 Creatinine 0.7 Est GFR ( Amer) > 60 Est GFR (Non-Af Amer) > 60 POC Glucose (mg/dL) 184 H Random Glucose 143 H Calcium 9.5 Total Bilirubin 0.2 AST 34 ALT 26 Alkaline Phosphatase 56 Troponin I < 0.0120 Total Protein 7.4 Albumin 3.9 Globulin 3.4 Albumin/Globulin Ratio 1.1 12/27/17 12/27/17 12/27/17 05:43 06:51 06:51 WBC 7.5 RBC 4.24 Hgb 11.5 L Hct 34.9 MCV 82.2 MCH 27.1 MCHC 32.9 L RDW 15.0 H Plt Count 324 MPV Neut % (Auto) Lymph % (Auto) [place] % (Auto) Eos % (Auto) Baso % (Auto) Neut # (Auto) Lymph # (Auto) [place] # (Auto) Eos # (Auto) Baso # (Auto) Sodium 141 Potassium 3.6 Chloride 106 Carbon Dioxide 28 Anion Gap 11 BUN 15 Creatinine 0.6 L Est GFR ( Amer) > 60 Est GFR (Non-Af Amer) > 60 POC Glucose (mg/dL) 131 H Random Glucose 143 H Calcium 9.2 Total Bilirubin 0.3 AST 27 ALT 28 Alkaline Phosphatase 56 Troponin I < 0.0120 Total Protein 7.0 Albumin 3.6 Globulin 3.4 Albumin/Globulin Ratio 1.1 Assessment & Plan (1) Chest pain Assessment and Plan: trops x 3 asa, plavix cardio Status: Acute (2) DVT prophylaxis Assessment and Plan: scd nad ae hose asa/plavix Status: Acute (3) Type 2 diabetes mellitus with hyperglycemia Assessment and Plan: home meds, fsbg, dietary Status: Acute Decision To Admit - Pt Status Changed To: Hospital Disposition Of: Observation - . Bed Request Type: Telemetry Admitting Physician: Nba Garzon
--- NOTE | 2017-12-27 12:37 | RAD ---
Date of service: 12/26/2017 HISTORY: cp COMPARISON: Chest radiograph dated 08/15/2017. TECHNIQUE: Chest PA and lateral FINDINGS: LUNGS: No active pulmonary disease. PLEURA: No significant pleural effusion identified. No pneumothorax apparent. CARDIOVASCULAR: Prior sternotomy with sternal wires and surgical clips redemonstrated. Atherosclerotic aortic calcifications. Cardiomediastinal silhouette stably enlarged. OSSEOUS STRUCTURES: Unchanged. VISUALIZED UPPER ABDOMEN: Normal. OTHER FINDINGS: None. IMPRESSION: No active disease.
[2017-12-27 15:37] VITALS: BP 145/82; PULSE 60; RESP 20; TEMP 97.5; O2SAT 99
--- NOTE | 2017-12-27 15:51 | CP.PCM.CON ---
History of Present Illness - History of Present Illness History of Present Illness: I was asked to evaluate patient by Dr Ramirez Patient is a 62 year old female with HTN CAD s/p CABG who presents with chest pain. Symptoms occurred at rest and was left sided The pateint had a normal stress test in September. Review of Systems - Constitutional Constitutional: absent: As Per HPI, Anorexia, Chills, Daytime Sleepiness, Excessive Sweating, Fatigue, Fever, Frequent Falls, Headache, Increased Appetite, Lethargy, Malaise, Night Sweats, Snoring, Sleep Apnea, Weight Gain, Weight Loss, Weakness, Other - EENT Eyes: absent: As Per HPI, Blind Spots, Blurred Vision, Change in Vision, Decreased Night Vision, Diplopia, Discharge, Dry Eye, Exophthalmos, Floaters, Irritation, Itchy Eyes, Loss of Peripheral Vision, Pain, Photophobia, Requires Corrective Lenses, Sees Flashes, Spots in Vision, Tunnel Vision, Other Visual Disturbances, Loss of Vision, Other Ears: absent: As Per HPI, Decreased Hearing, Ear Discharge, Ear Pain, Tinnitus, Abnormal Hearing, Disequilibrium, Dizziness, Other Nose/Mouth/Throat: absent: As Per HPI, Epistaxis, Nasal Congestion, Nasal Discharge, Nasal Obstruction, Nasal Trauma, Nose Pain, Post Nasal Drip, Sinus Pain, Sinus Pressure, Bleeding Gums, Change in Voice, Dental Pain, Dry Mouth, Dysphagia, Halitosis, Hoarsness, Lip Swelling, Mouth Lesions, Mouth Pain, Odynophagia, Sore Throat, Throat Swelling, Tongue Swelling, Facial Pain, Neck Pain, Neck Mass, Other - Cardiovascular Cardiovascular: absent: As Per HPI, Acrocyanosis, Chest Pain, Chest Pain at Rest, Chest Pain with Activity, Claudication, Diaphoresis, Dyspnea, Dyspnea on Exertion, Edema, Irregular Heart Rhythm, Pain Radiating to Arm/Neck/Jaw, Leg Edema, Leg Ulcers, Lightheadedness, Orthopnea, Palpitations, Paroxysmal Nocturnal Dyspnea, Pedal Edema, Radiating Pain, Rapid Heart Rate, Slow Heart Rate, Syncope, Other - Respiratory Respiratory: absent: As Per HPI, Cough, Dyspnea, Hemoptysis, Dyspnea on Exertion, Wheezing, Snoring, Stridor, Pain on Inspiration, Chest Congestion, Excessive Mucous Production, Change in Mucous Color, Pain with Coughing, Other - Gastrointestinal Gastrointestinal: absent: As Per HPI, Abdominal Pain, Belching, Bloating, Change in Bowel Habits, Change in Stool Character, Coffee Ground Emesis, Constipation, Cramping, Diarrhea, Dyspepsia, Dysphagia, Early Satiety, Excessive Flatus, Fecal Incontinence, Heartburn, Hematemesis, Hematochezia, Loose Stools, Melena, Nausea, Odynophagia, Temesmus, Vomiting, Other - Genitourinary Genitourinary: absent: As Per HPI, Change in Urinary Stream, Difficulty Urinating, Dysuria, Flank Pain, Hematuria, Pyuria, Nocturia, Urinary Incontinence, Urinary Frequency, Urinary Hesitance, Urinary Urgency, Voiding Freq/Small Amts, Freq UTI, Hx Renal/Bladder Calculi, Hx /Renal Surgery, Bladder Distension, Other - Musculoskeletal Musculoskeletal: absent: As Per HPI, Abnormal Gait, Arthralgias, Atrophy, Back Pain, Deformity, Joint Swelling, Limited Range of Motion, Loss of Height, Muscle Cramps, Muscle Weakness, Myalgias, Neck Pain, Numbness, Radiating Pain into Limb, Stiffness, Tingling, Other - Integumentary Integumentary: absent: As Per HPI, Acne, Alopecia, Bleeding Lesions, Change in Hair, Change in Nails, Change in Pigmentation, Changing Lesions, Dry Skin, Erythema, Furuncle, Hirsutism, Lesions, New Lesions, Non-Healing Lesions, Photosensitivity, Pruritus, Rash, Skin Pain, Skin Ulcer, Sores, Striae, Swelling, Unusual Bruising, Wounds, Jaundice, Other - Neurological Neurological: absent: As Per HPI, Abnormal Gait, Abnormal Hearing, Abnormal Movements, Abnormal Speech, Behavioral Changes, Burning Sensations, Confusion, Convulsions, Disequilibrium, Dizziness, Numbness, Focal Weakness, Frequent Falls, Headaches, Lack of Coordination, Loss of Vision, Memory Loss, Paresthesias, Radicular Pain, Restless Legs, Sensory Deficit, Syncope, Tingling, Tremor, Vertigo, Weakness, Other Visual Disturbances, Other - Psychiatric Psychiatric: absent: As Per HPI, Abnormal Sleep Pattern, Anhedonia, Anxiety, Auditory Hallucinations, Behavioral Changes, Change in Appetite, Change in Libido, Confusion, Depression, Difficulty Concentrating, Hallucinations, Homicidal Ideation, Hopelessness, Irritability, Memory Loss, Mood Swings, Panic Attacks, Paranoia, Suicidal Ideation, Visual Hallucinations, Tactile Hallucinations, Other - Endocrine Endocrine: absent: As Per HPI, Change in Body Appearance, Change in Libido, Cold Intolorance, Deepening of Voice, Excessive Sweating, Fatigue, Flushing, Heat Intolorance, Increase in Ring/Shoe/Hat Size, Palpitations, Polydipsia, Polyphagia, Polyuria, Other - Hematologic/Lymphatic Hematologic: absent: As Per HPI, Easy Bleeding, Easy Bruising, Lymphadenopathy, Other Past Patient History - Past Medical History & Family History Past Medical History?: Yes - Past Social History Smoking Status: Never Smoked - CARDIAC Hx Hypercholesterolemia: Yes Hx Hypertension: Yes - PULMONARY Hx Respiratory Disorders: No - NEUROLOGICAL Hx Neurological Disorder: No - HEENT Hx HEENT Problems: No - RENAL Hx Chronic Kidney Disease: No - ENDOCRINE/METABOLIC Hx Endocrine Disorders: Yes (DM) Hx Diabetes Mellitus Type 2: Yes - HEMATOLOGICAL/ONCOLOGICAL Hx AIDS: No Hx Human Immunodeficiency Virus (HIV): No - INTEGUMENTARY Hx Dermatological Problems: No - MUSCULOSKELETAL/RHEUMATOLOGICAL Hx Arthritis: Yes Hx Falls: No - GASTROINTESTINAL Hx Gastrointestinal Disorders: No - GENITOURINARY/GYNECOLOGICAL Hx Genitourinary Disorders: No - PSYCHIATRIC Hx Substance Use: No - SURGICAL HISTORY Hx Coronary Artery Bypass Graft: Yes Hx Hysterectomy: Yes - ANESTHESIA Hx Anesthesia: Yes Hx Anesthesia Reactions: No Hx Malignant Hyperthermia: No Meds Allergies/Adverse Reactions: Allergies Allergy/AdvReac Type Severity Reaction Status Date / Time No Known Allergies Allergy Verified 08/15/17 10:59 - Medications Medications: Current Medications Amlodipine Besylate (Norvasc) 5 mg PO DAILY [facility] Last Admin: 12/27/17 08:14 Dose: 5 mg Atorvastatin Calcium (Lipitor) 80 mg PO DAILY [facility] Last Admin: 12/27/17 08:13 Dose: 80 mg Calcium/Vitamin D (Oyster Shell Calcium/Vitamin D 500 Mg-200 Iu) 1 tab PO Q12 [facility] Last Admin: 12/27/17 08:15 Dose: 1 tab Citalopram Hydrobromide (Celexa) 40 mg PO DAILY [facility] Last Admin: 12/27/17 08:15 Dose: 40 mg Clopidogrel Bisulfate (Plavix) 75 mg PO DAILY [facility] Last Admin: 12/27/17 08:16 Dose: 75 mg Dicyclomine HCl (Bentyl) 10 mg PO DAILY PRN PRN Reason: abdominal cramp Fenofibrate (Tricor) 145 mg PO DAILY [facility] Last Admin: 12/27/17 08:13 Dose: 145 mg Hydrochlorothiazide (Hydrodiuril) 25 mg PO DAILY [facility] Last Admin: 12/27/17 08:12 Dose: 25 mg Ibuprofen (Motrin Tab) 600 mg PO Q8H PRN PRN Reason: Pain, moderate (4-7) Losartan Potassium (Cozaar) 100 mg PO DAILY [facility] Last Admin: 12/27/17 08:14 Dose: 100 mg Metformin HCl (Glucophage) 1,000 mg PO BID [facility] Last Admin: 12/27/17 10:29 Dose: 1,000 mg Nitroglycerin (Nitrostat Sl Tab) 0.4 mg SL Q5MIN PRN PRN Reason: chest pain Ondansetron HCl (Zofran Tab) 4 mg PO Q6 PRN PRN Reason: Nausea/Vomiting Pantoprazole Sodium (Protonix Ec Tab) 40 mg PO DAILY [facility] Last Admin: 12/27/17 08:16 Dose: 40 mg Sitagliptin Phosphate (Januvia) 100 mg PO DAILY [facility] Last Admin: 12/27/17 08:13 Dose: 100 mg Physical Exam - Constitutional Appears: Non-toxic - Head Exam Head Exam: NORMAL INSPECTION - Eye Exam Eye Exam: Normal appearance - ENT Exam ENT Exam: Mucous Membranes Moist - Neck Exam Neck exam: Positive for: Full Rom - Respiratory Exam Respiratory Exam: NORMAL BREATHING PATTERN - Cardiovascular Exam Cardiovascular Exam: REGULAR RHYTHM - GI/Abdominal Exam GI & Abdominal Exam: Normal Bowel Sounds - Rectal Exam Rectal Exam: Deferred - Extremities Exam Extremities exam: Positive for: pedal edema - Back Exam Back exam: NORMAL INSPECTION - Neurological Exam Neurological exam: Alert, Oriented x3 - Psychiatric Exam Psychiatric exam: Normal Affect - Skin Skin Exam: Normal Color Results - Vital Signs Recent Vital Signs: Last Vital Signs Temp 97.5 F L 12/27/17 15:36 Pulse 60 12/27/17 15:36 Resp 20 12/27/17 15:36 BP 145/82 12/27/17 15:36 Pulse Ox 99 12/27/17 15:36 - Labs Result Diagrams: 12/27/17 06:51 12/27/17 06:51 Labs: Laboratory Results - last 24 hr 12/26/17 12/26/17 12/26/17 19:34 19:34 23:17 WBC 9.4 RBC 4.31 Hgb 11.5 L Hct 35.8 MCV 83.1 D MCH 26.8 L MCHC 32.2 L RDW 15.1 H Plt Count 335 MPV 8.7 Neut % (Auto) 51.5 Lymph % (Auto) 38.0 [place] % (Auto) 7.1 Eos % (Auto) 2.8 Baso % (Auto) 0.6 Neut # (Auto) 4.9 Lymph # (Auto) 3.6 [place] # (Auto) 0.7 Eos # (Auto) 0.3 Baso # (Auto) 0.1 Sodium 141 Potassium 3.6 Chloride 105 Carbon Dioxide 30 Anion Gap 10 BUN 16 Creatinine 0.7 Est GFR ( Amer) > 60 Est GFR (Non-Af Amer) > 60 POC Glucose (mg/dL) 184 H Random Glucose 143 H Calcium 9.5 Total Bilirubin 0.2 AST 34 ALT 26 Alkaline Phosphatase 56 Troponin I < 0.0120 Total Protein 7.4 Albumin 3.9 Globulin 3.4 Albumin/Globulin Ratio 1.1 12/27/17 12/27/17 12/27/17 05:43 06:51 06:51 WBC 7.5 RBC 4.24 Hgb 11.5 L Hct 34.9 MCV 82.2 MCH 27.1 MCHC 32.9 L RDW 15.0 H Plt Count 324 MPV Neut % (Auto) Lymph % (Auto) [place] % (Auto) Eos % (Auto) Baso % (Auto) Neut # (Auto) Lymph # (Auto) [place] # (Auto) Eos # (Auto) Baso # (Auto) Sodium 141 Potassium 3.6 Chloride 106 Carbon Dioxide 28 Anion Gap 11 BUN 15 Creatinine 0.6 L Est GFR ( Amer) > 60 Est GFR (Non-Af Amer) > 60 POC Glucose (mg/dL) 131 H Random Glucose 143 H Calcium 9.2 Total Bilirubin 0.3 AST 27 ALT 28 Alkaline Phosphatase 56 Troponin I < 0.0120 Total Protein 7.0 Albumin 3.6 Globulin 3.4 Albumin/Globulin Ratio 1.1 12/27/17 12/27/17 11:16 12:03 WBC RBC Hgb Hct MCV MCH MCHC RDW Plt Count MPV Neut % (Auto) Lymph % (Auto) [place] % (Auto) Eos % (Auto) Baso % (Auto) Neut # (Auto) Lymph # (Auto) [place] # (Auto) Eos # (Auto) Baso # (Auto) Sodium Potassium Chloride Carbon Dioxide Anion Gap BUN Creatinine Est GFR ( Amer) Est GFR (Non-Af Amer) POC Glucose (mg/dL) 142 H Random Glucose Calcium Total Bilirubin AST ALT Alkaline Phosphatase Troponin I < 0.0120 Total Protein Albumin Globulin Albumin/Globulin Ratio - EKG Data EKG Interpreted by: Myself Assessment & Plan (1) CAD (coronary artery disease) Assessment and Plan: patient had negative cardiac enzymes. Given normal stress test patient is stable for discharge. medical therapy. Status: Acute (2) Chest pain Assessment and Plan: as above Status: Acute (3) HTN (hypertension) Assessment and Plan: blood pressure control Status: Acute
== END 2017-12-27 17:05 | disposition home or self-care (01) ==
LOC: H.ER 18:06 → H.ERHOLD 20:57 → H.TEL 23:02
PROVIDERS: ADMIT Family Medicine; ATTEND Family Medicine
DX: R07.9 Chest pain, unspecified (principal); I25.10 Atherosclerotic heart disease of native coronary artery without angina pectoris; Z95.1 Presence of aortocoronary bypass graft; E11.65 Type 2 diabetes mellitus with hyperglycemia; I10 Essential (primary) hypertension; E78.00 Pure hypercholesterolemia, unspecified; Z79.84 Long term (current) use of oral hypoglycemic drugs
CPT/HCPCS: 36415; 71046; 80053; 82948; 84484; 85025; 85027; 99285; G0378